=== PATIENT | female | born 1960 | race Caucasian/White ===

== ENCOUNTER 2017-12-06 07:25 | Inpatient (IN) | payer MEDICARE, MEDICAID ==
[~2017-12-06] VITALS: Ht 165.1 cm; Wt 63.7 kg
[~2017-12-06 07:25] MED LIST: ALBU8.5H8 IH; ATOR20TA PO; BUSP10TA11 PO; DOXE10CA3; DULO20CA50 PO; FLUT1DIS INH; HYDR-4353 PO; INSU100V11 SQ; LANTUS SQ; LEVO50TA66 PO; LINA5TAB4 PO; METO-292 PO; MORP30TA PO; SPIIN INH
[2017-12-06] MEDS ORDERED: ipratropium/albuterol 3ml nebule NEB ONE ×3 (07:40→11:35)
[2017-12-06] MEDS ORDERED: methylPREDNISolone sod succ 125mg/2ml vial IV ONE (07:40)
[2017-12-06] MEDS ORDERED: ondansetron/PF 4mg/2ml inj IV ONE (08:25)
[2017-12-06 08:29] LABS: ALANINE AMINOTRANSFERASE 14 U/L (12-78); ALBUMIN 3.8 G/DL (3.4-5.0); ALBUMIN/GLOBULIN RATIO 0.9 (1.1-1.5); ALKALINE PHOSPHATASE 150 IU/L (46-116); ANION GAP 11 (8-16); ASPARTATE AMINO TRANSFERASE 15 U/L (10-37); BILIRUBIN,TOTAL 0.7 MG/DL (0.1-1.0); BLOOD UREA NITROGEN 9 MG/DL (7-18); BUN/CREATININE RATIO 9.3 (6.6-38.0); CALCIUM 9.4 MG/DL (8.5-10.1); CHLORIDE 100 MMOL/L (99-107); CREATININE 0.97 MG/DL (0.40-0.90); GLUCOSE 211 MG/DL (70-104); POTASSIUM 3.8 MMOL/L (3.5-5.1); SODIUM 138 MMOL/L (135-145); TOTAL CARBON DIOXIDE 27.1 MMOL/L (24-32); TOTAL PROTEIN 8.2 G/DL (6.4-8.2); eGFR 59 ML/MIN
[2017-12-06 08:33] LABS: BASOPHILS % (AUTO) 0.1 % (0-1); EOSINOPHILS # (AUTO) 0.1 X10'3 (0-0.9); EOSINOPHILS % (AUTO) 0.7 % (0-6); HEMATOCRIT 45.7 % (35.0-45.0); HEMOGLOBIN 15.7 g/dl (12.0-16.0); LYMPHOCYTES # (AUTO) 2.1 X10'3 (1.1-4.8); MEAN CORPUSCULAR HEMOGLOBIN 31.4 PG (27.0-31.0); MEAN CORPUSCULAR HGB CONC 34.4 % (33.0-36.5); MEAN CORPUSCULAR VOLUME 91.1 FL (78-98); MONOCYTES # (AUTO) 0.5 X10'3 (0-0.9); MONOCYTES % (AUTO) 4.2 % (2-12); NEUTROPHILS # (AUTO) 8.4 X10'3 (1.8-7.7); PLATELET COUNT 256 X10'3 (140-440); RED BLOOD COUNT 5.02 X10'6 (4.20-5.60); RED CELL DISTRIBUTION WIDTH 12.8 % (11.5-14.5); WHITE BLOOD COUNT 11.1 X10'3 (4.5-11.0)
[2017-12-06] MEDS ORDERED: levoFLOXACIN-Levaquin 750MG/D5 150 ML IV ONE (08:40)
[2017-12-06] MEDS ORDERED: LORA1TAB PO (08:47)
[2017-12-06 08:55] LABS: PROTHROMBIN TIME 10.1 SECONDS (9.0-12.0)
[2017-12-06 08:56] LABS: D-DIMER 0.38 MG/L FEU (0-0.50); PARTIAL THROMBOPLASTIN TIME 32 SECONDS (22-32)
[2017-12-06] MEDS ORDERED: magnesium 4gm in 100ml NS 100 ML IV PRN (11:50)
[2017-12-06] MEDS ORDERED: magnesium 1gm/100ml D5W IVPB 100 ML IV PRN (11:50)
[2017-12-06] MEDS ORDERED: potassium Cl 20 mEq SR tablet PO PRN ×2 (11:50)
[2017-12-06] MEDS: K and/or MAG REPLACEMENT MC SCH (11:50)
[2017-12-06] MEDS ORDERED: potassium Cl 40MEQ/NS 500ml 500 ML IV PRN ×2 (11:50)
[2017-12-06] MEDS ORDERED: mag hydrox/Alum hydrox/simeth 30ml oral suspension PO PRN (11:50)
[2017-12-06] MEDS ORDERED: acetaminophen 325mg tablet PO PRN ×2 (11:50)
[2017-12-06] MEDS ORDERED: ipratropium/albuterol 3ml nebule NEB PRN (11:50)
[2017-12-06] MEDS ORDERED: magnesium Cl slow-release 64mg tablet PO PRN (11:50)
[2017-12-06] MEDS ORDERED: glucagon, human recombinant 1mg kit SUBCUT PRN (13:35)
[2017-12-06] MEDS ORDERED: dextrose ORAL solution 15 GM/59 ML bottle PO PRN ×2 (13:35)
[2017-12-06] MEDS ORDERED: dextrose 50%-water 50ml dispensing syringe IV PRN ×2 (13:35)
[2017-12-06] MEDS ORDERED: MESSAGE TO PHARMACY PO ONE (13:35)
[2017-12-06] MEDS ORDERED: DULO60CA64 PO (13:46)
[2017-12-06] MEDS ORDERED: ADV50250 INH (13:48)
[2017-12-06] MEDS ORDERED: MORP30CA17 PO (13:50)
[2017-12-06] MEDS ORDERED: ipratropium 0.5 MG/2.5ML nebule IH SCH (14:00)
[2017-12-06 14:42] LABS: HEMOGLOBIN A1C 8.9 % (4.5-6.2)
[2017-12-06] MEDS ORDERED: albuterol 2.5 MG/3 ML nebule NEB SCH (15:00)
[2017-12-06] MEDS: methylPREDNISolone sod succ 125mg/2ml vial IV SCH ×2 (15:05→19:46)
[2017-12-06] MEDS: enoxaparin 40mg/0.4ml syringe SUBCUT SCH (15:10)
[2017-12-06] MEDS: normal saline 1000ml 1,000 ML IV SCH (15:13)
[2017-12-06] MEDS: nicotine 14mg patch - 24hr TD SCH (15:13)
[2017-12-06 15:34] VITALS: BP 143/59
[2017-12-06] MEDS: LORazepam 1 MG tablet PO SCH (16:17)
[2017-12-06] MEDS: ipratropium/albuterol 3ml nebule NEB SCH ×3 (16:35→22:51)
[2017-12-06 17:00] VITALS: BP 131/62
[2017-12-06] MEDS: BUDESONIDE 0.25 MG/2 ML AMPUL.NEB IH SCH (19:06)
[2017-12-06] MEDS: insulin Lispro (HumaLOG) vial - multi-dose SQ SCH ×2 (19:45→21:44)
[2017-12-06] MEDS: morphine ER 30mg tablet PO SCH (19:46)
[2017-12-06] MEDS: busPIRone 5mg tablet PO SCH (19:46)
[2017-12-06] MEDS ORDERED: insulin glargine (Lantus) pen - multi-dose SQ SCH (21:00)
[2017-12-06] MEDS: LORazepam 2 mg/ml vial IV PRN (21:26)
[2017-12-06] MEDS: insulin glargine (Lantus) pen - multi-dose SQ SCH (21:43)
[2017-12-06 22:00] VITALS: BP 113/84
[2017-12-06] MEDS: temazepam 15mg capsule PO PRN (22:33)
[2017-12-07] MEDS: LORazepam 1 MG tablet PO SCH ×3 (00:03→15:50)
[2017-12-07 00:45] LABS: URINE AMPHETAMINE SCREEN NEGATIVE (Neg); URINE BARBITUATE SCREEN NEGATIVE (Neg); URINE BENZODIAZEPINES SCREEN NEGATIVE (Neg); URINE CANNABINOID SCREEN POSITIVE (Neg); URINE COCAINE SCREEN NEGATIVE (Neg); URINE METHADONE SCREEN NEGATIVE (Neg); URINE OPIATE SCREEN POSITIVE (Neg); URINE PHENCYCLIDINE SCREEN NEGATIVE (Neg)
[2017-12-07] MEDS: normal saline 1000ml 1,000 ML IV SCH ×2 (02:06→05:40)
[2017-12-07] MEDS: methylPREDNISolone sod succ 125mg/2ml vial IV SCH ×4 (02:16→20:27)
[2017-12-07 06:00] VITALS: BP 148/75
[2017-12-07 06:15] LABS: HEMATOCRIT 39.9 % (35.0-45.0); HEMOGLOBIN 13.2 g/dl (12.0-16.0); MEAN CORPUSCULAR HGB CONC 33.1 % (33.0-36.5); MEAN CORPUSCULAR VOLUME 90.5 FL (78-98); MEAN PLATELET VOLUME 7.9 FL (7.4-10.4); PLATELET COUNT 217 X10'3 (140-440); RED BLOOD COUNT 4.41 X10'6 (4.20-5.60); RED CELL DISTRIBUTION WIDTH 12.8 % (11.5-14.5); WHITE BLOOD COUNT 11.2 X10'3 (4.5-11.0)
[2017-12-07 06:26] LABS: ALBUMIN 3.3 G/DL (3.4-5.0); ANION GAP 7 (8-16); BLOOD UREA NITROGEN 9 MG/DL (7-18); BUN/CREATININE RATIO 11.1 (6.6-38.0); CALCIUM 9.1 MG/DL (8.5-10.1); CHLORIDE 101 MMOL/L (99-107); CHOL/HDL RATIO 2.4 (0.00-4.99); CHOLESTEROL 120 MG/DL (0-200); CREATININE 0.81 MG/DL (0.40-0.90); GLUCOSE 252 MG/DL (70-104); HDL CHOLESTEROL 49 MG/DL (35-60); LDL CHOLESTEROL 56 MG/DL (50-100); MAGNESIUM 1.7 MG/DL (1.5-2.4); SODIUM 137 MMOL/L (135-145); TOTAL CARBON DIOXIDE 28.9 MMOL/L (24-32); TRIGLYCERIDES 83 MG/DL (20-135); eGFR 72 ML/MIN
[2017-12-07 07:03] LABS: POTASSIUM 4.3 MMOL/L (3.5-5.1)
[2017-12-07] MEDS: LORazepam 2 mg/ml vial IV PRN (07:06)
[2017-12-07] MEDS: ipratropium/albuterol 3ml nebule NEB SCH ×2 (07:33→11:52)
[2017-12-07] MEDS: BUDESONIDE 0.25 MG/2 ML AMPUL.NEB IH SCH ×2 (07:33→19:38)
[2017-12-07] MEDS: K and/or MAG REPLACEMENT MC SCH (08:00)
[2017-12-07] MEDS: linagliptin 5mg tablet PO SCH (08:15)
[2017-12-07] MEDS: morphine ER 30mg tablet PO SCH ×2 (08:15→20:33)
[2017-12-07] MEDS: enoxaparin 40mg/0.4ml syringe SUBCUT SCH (08:16)
[2017-12-07] MEDS: atorvastatin 20mg tablet PO SCH (08:16)
[2017-12-07] MEDS: busPIRone 5mg tablet PO SCH ×2 (08:16→20:32)
[2017-12-07] MEDS: nicotine 14mg patch - 24hr TD SCH (08:16)
[2017-12-07] MEDS: levoTHYROXINE 25mcg tablet PO SCH (08:17)
[2017-12-07] MEDS: levoFLOXACIN-Levaquin 500mg/D5 100 ML IV SCH ×2 (09:26→14:41)
[2017-12-07] MEDS: HYDROcodone/acetaminophen 10/325mg tab PO PRN ×3 (09:27→22:21)
[2017-12-07] MEDS: insulin Lispro (HumaLOG) vial - multi-dose SQ SCH ×3 (09:40→20:20)
[2017-12-07 10:00] VITALS: BP 118/57
[2017-12-07] MEDS ORDERED: METO25TA6 PO (11:23)
[2017-12-07] MEDS ORDERED: LISI10TA4 PO (11:24)
[2017-12-07] MEDS ORDERED: HYDR-4353 PO (11:35)
[2017-12-07] MEDS ORDERED: levalbuterol 0.63mg/3ml nebule IH PRN (15:50)
[2017-12-07] MEDS ORDERED: Protein Smoothie (high protein) 240ml (8oz) cup PO SCH (17:00)
[2017-12-07 18:00] VITALS: BP 112/55
[2017-12-07] MEDS: ondansetron/PF 4mg/2ml inj IV PRN (19:11)
[2017-12-07] MEDS: levalbuterol 0.63mg/3ml nebule IH SCH ×2 (19:39→23:00)
[2017-12-07] MEDS: ipratropium 0.5 MG/2.5ML nebule IH SCH ×2 (19:39→23:00)
[2017-12-07] MEDS: metoprolol tartrate 25mg tablet PO SCH (20:32)
[2017-12-07] MEDS: doxycycline inj 100 MG in normal saline 100ml IV soln 100 ML IV SCH (20:33)
[2017-12-07] MEDS: lactobacillus rhamnosus 10,000 MMU CELLS/CAPSULE PO SCH (20:33)
[2017-12-07] MEDS: temazepam 15mg capsule PO PRN (20:36)
[2017-12-07] MEDS ORDERED: levalbuterol 0.63mg/3ml nebule IH SCH (21:00)
[2017-12-07 22:00] VITALS: BP 103/55
[2017-12-07] MEDS: insulin glargine (Lantus) pen - multi-dose SQ SCH (22:34)
[2017-12-08] MEDS: LORazepam 1 MG tablet PO SCH ×4 (00:10→23:43)
[2017-12-08] MEDS: methylPREDNISolone sod succ 125mg/2ml vial IV SCH ×4 (02:33→20:10)
[2017-12-08 06:00] VITALS: BP 135/76
[2017-12-08 06:58] LABS: HEMATOCRIT 35.9 % (35.0-45.0); HEMOGLOBIN 12.5 g/dl (12.0-16.0); MEAN CORPUSCULAR HEMOGLOBIN 31.5 PG (27.0-31.0); MEAN CORPUSCULAR HGB CONC 34.8 % (33.0-36.5); MEAN CORPUSCULAR VOLUME 90.5 FL (78-98); PLATELET COUNT 207 X10'3 (140-440); RED BLOOD COUNT 3.96 X10'6 (4.20-5.60); RED CELL DISTRIBUTION WIDTH 13.2 % (11.5-14.5); WHITE BLOOD COUNT 15.8 X10'3 (4.5-11.0)
[2017-12-08 07:06] LABS: ANION GAP 7 (8-16); BLOOD UREA NITROGEN 14 MG/DL (7-18); BUN/CREATININE RATIO 16.5 (6.6-38.0); CALCIUM 8.4 MG/DL (8.5-10.1); CHLORIDE 105 MMOL/L (99-107); CREATININE 0.85 MG/DL (0.40-0.90); GLUCOSE 128 MG/DL (70-104); MAGNESIUM 1.6 MG/DL (1.5-2.4); POTASSIUM 4.2 MMOL/L (3.5-5.1); SODIUM 140 MMOL/L (135-145); eGFR 68 ML/MIN
[2017-12-08] MEDS: levalbuterol 0.63mg/3ml nebule IH SCH ×5 (07:25→22:55)
[2017-12-08] MEDS: ipratropium 0.5 MG/2.5ML nebule IH SCH ×5 (07:25→22:55)
[2017-12-08] MEDS: BUDESONIDE 0.25 MG/2 ML AMPUL.NEB IH SCH ×2 (07:28→19:50)
[2017-12-08] MEDS: K and/or MAG REPLACEMENT MC SCH (08:00)
[2017-12-08] MEDS: doxycycline inj 100 MG in normal saline 100ml IV soln 100 ML IV SCH ×2 (08:01→20:08)
[2017-12-08] MEDS: atorvastatin 20mg tablet PO SCH (08:02)
[2017-12-08] MEDS: lactobacillus rhamnosus 10,000 MMU CELLS/CAPSULE PO SCH ×2 (08:02→20:07)
[2017-12-08] MEDS: morphine ER 30mg tablet PO SCH ×2 (08:02→20:07)
[2017-12-08] MEDS: nicotine 14mg patch - 24hr TD SCH (08:02)
[2017-12-08] MEDS: levoTHYROXINE 25mcg tablet PO SCH (08:02)
[2017-12-08] MEDS: metoprolol tartrate 25mg tablet PO SCH ×2 (08:03→20:07)
[2017-12-08] MEDS: enoxaparin 40mg/0.4ml syringe SUBCUT SCH (08:03)
[2017-12-08] MEDS: busPIRone 5mg tablet PO SCH ×2 (08:03→20:07)
[2017-12-08] MEDS: linagliptin 5mg tablet PO SCH (08:03)
[2017-12-08] MEDS: ondansetron/PF 4mg/2ml inj IV PRN (08:05)
[2017-12-08] MEDS: normal saline 1000ml 1,000 ML IV SCH (08:21)
[2017-12-08] MEDS: HYDROcodone/acetaminophen 10/325mg tab PO PRN ×4 (09:31→22:02)
[2017-12-08 10:00] VITALS: BP 99/57
[2017-12-08] MEDS: insulin Lispro (HumaLOG) vial - multi-dose SQ SCH ×3 (10:14→18:44)
[2017-12-08] MEDS ORDERED: proCHLORperazine 10 MG/2 ml inj IV PRN (12:15)
[2017-12-08 17:00] VITALS: BP 120/47
[2017-12-08 20:06] VITALS: BP 124/62
[2017-12-08] MEDS: insulin glargine (Lantus) pen - multi-dose SQ SCH (21:12)
[2017-12-08] MEDS: temazepam 15mg capsule PO PRN (21:12)
[2017-12-08 22:00] VITALS: BP 132/54
[2017-12-09] MEDS: methylPREDNISolone sod succ 125mg/2ml vial IV SCH ×2 (02:08→07:22)
[2017-12-09] MEDS: normal saline 1000ml 1,000 ML IV SCH (02:09)
[2017-12-09] MEDS: ondansetron/PF 4mg/2ml inj IV PRN (03:36)
[2017-12-09] MEDS: magnesium hydroxide 30ml (MOM) UD suspension PO PRN ×2 (04:03→15:43)
[2017-12-09] MEDS: HYDROcodone/acetaminophen 10/325mg tab PO PRN ×5 (04:03→23:58)
[2017-12-09 05:23] LABS: HEMATOCRIT 39.2 % (35.0-45.0); HEMOGLOBIN 12.8 g/dl (12.0-16.0); MEAN CORPUSCULAR HEMOGLOBIN 29.9 PG (27.0-31.0); MEAN CORPUSCULAR HGB CONC 32.6 % (33.0-36.5); MEAN CORPUSCULAR VOLUME 91.8 FL (78-98); MEAN PLATELET VOLUME 7.7 FL (7.4-10.4); PLATELET COUNT 238 X10'3 (140-440); RED BLOOD COUNT 4.27 X10'6 (4.20-5.60); RED CELL DISTRIBUTION WIDTH 14.5 % (11.5-14.5); WHITE BLOOD COUNT 16.3 X10'3 (4.5-11.0)
[2017-12-09 06:00] VITALS: BP 109/64
[2017-12-09 06:42] LABS: ALBUMIN 3.1 G/DL (3.4-5.0); ANION GAP 8 (8-16); BLOOD UREA NITROGEN 16 MG/DL (7-18); CALCIUM 8.6 MG/DL (8.5-10.1); CHLORIDE 105 MMOL/L (99-107); GLUCOSE 70 MG/DL (70-104); MAGNESIUM 1.8 MG/DL (1.5-2.4); POTASSIUM 3.5 MMOL/L (3.5-5.1); SODIUM 141 MMOL/L (135-145); TOTAL CARBON DIOXIDE 28.4 MMOL/L (24-32); eGFR 57 ML/MIN
[2017-12-09] MEDS: BUDESONIDE 0.25 MG/2 ML AMPUL.NEB IH SCH ×2 (07:01→19:34)
[2017-12-09] MEDS: ipratropium 0.5 MG/2.5ML nebule IH SCH ×5 (07:02→23:43)
[2017-12-09] MEDS: levalbuterol 0.63mg/3ml nebule IH SCH ×5 (07:14→23:43)
[2017-12-09] MEDS: levoTHYROXINE 25mcg tablet PO SCH (07:22)
[2017-12-09] MEDS: lactobacillus rhamnosus 10,000 MMU CELLS/CAPSULE PO SCH ×2 (07:23→20:16)
[2017-12-09] MEDS: doxycycline inj 100 MG in normal saline 100ml IV soln 100 ML IV SCH (07:23)
[2017-12-09] MEDS: LORazepam 1 MG tablet PO SCH ×3 (07:23→23:58)
[2017-12-09] MEDS: busPIRone 5mg tablet PO SCH ×2 (07:23→20:15)
[2017-12-09] MEDS: atorvastatin 20mg tablet PO SCH (07:24)
[2017-12-09] MEDS: morphine ER 30mg tablet PO SCH ×2 (07:26→20:15)
[2017-12-09] MEDS: linagliptin 5mg tablet PO SCH (07:26)
[2017-12-09] MEDS: metoprolol tartrate 25mg tablet PO SCH ×2 (07:26→20:15)
[2017-12-09] MEDS: enoxaparin 40mg/0.4ml syringe SUBCUT SCH (07:27)
[2017-12-09] MEDS: nicotine 14mg patch - 24hr TD SCH (07:28)
[2017-12-09] MEDS: K and/or MAG REPLACEMENT MC SCH (08:00)
[2017-12-09 10:00] VITALS: BP 109/64
[2017-12-09] MEDS ORDERED: polyethylene glycol 3350 17gm powd pack PO PRN (16:25)
[2017-12-09] MEDS: DOXYCYCLINE 100MG CAPSULE PO SCH (16:53)
[2017-12-09 18:00] VITALS: BP 141/65
[2017-12-09] MEDS: insulin Lispro (HumaLOG) vial - multi-dose SQ SCH (18:49)
[2017-12-09] MEDS ORDERED: methylPREDNISolone sod succ 125mg/2ml vial IV SCH (20:00)
[2017-12-09] MEDS: docusate sod 100mg capsule PO SCH (20:15)
[2017-12-09 22:00] VITALS: BP 148/46
[2017-12-10 05:00] VITALS: BP 147/55
[2017-12-10 05:25] LABS: HEMATOCRIT 37.9 % (35.0-45.0); HEMOGLOBIN 12.6 g/dl (12.0-16.0); MEAN CORPUSCULAR HEMOGLOBIN 30.2 PG (27.0-31.0); MEAN CORPUSCULAR HGB CONC 33.4 % (33.0-36.5); MEAN CORPUSCULAR VOLUME 90.4 FL (78-98); MEAN PLATELET VOLUME 7.4 FL (7.4-10.4); PLATELET COUNT 236 X10'3 (140-440); RED BLOOD COUNT 4.19 X10'6 (4.20-5.60); RED CELL DISTRIBUTION WIDTH 13.9 % (11.5-14.5); WHITE BLOOD COUNT 10.9 X10'3 (4.5-11.0)
[2017-12-10 05:47] LABS: ALBUMIN 2.6 G/DL (3.4-5.0); ANION GAP 4 (8-16); BLOOD UREA NITROGEN 14 MG/DL (7-18); BUN/CREATININE RATIO 16.7 (6.6-38.0); CHLORIDE 107 MMOL/L (99-107); CREATININE 0.84 MG/DL (0.40-0.90); GLUCOSE 111 MG/DL (70-104); POTASSIUM 4.5 MMOL/L (3.5-5.1); SODIUM 141 MMOL/L (135-145); TOTAL CARBON DIOXIDE 29.8 MMOL/L (24-32); eGFR 69 ML/MIN
[2017-12-10] MEDS: levalbuterol 0.63mg/3ml nebule IH SCH ×2 (07:00→11:21)
[2017-12-10] MEDS ORDERED: levoTHYROXINE 25mcg tablet PO SCH (07:00)
[2017-12-10] MEDS ORDERED: lactulose 20gm/30ml cup PO ONE (07:40)
[2017-12-10] MEDS: ondansetron/PF 4mg/2ml inj IV PRN (07:48)
[2017-12-10] MEDS: nicotine 14mg patch - 24hr TD SCH (07:56)
[2017-12-10] MEDS: DOXYCYCLINE 100MG CAPSULE PO SCH (07:58)
[2017-12-10] MEDS: LORazepam 1 MG tablet PO SCH (07:59)
[2017-12-10] MEDS: busPIRone 5mg tablet PO SCH (07:59)
[2017-12-10] MEDS: K and/or MAG REPLACEMENT MC SCH (08:00)
[2017-12-10] MEDS ORDERED: predniSONE 20 mg tablet PO SCH (08:00)
[2017-12-10] MEDS ORDERED: famotidine 20mg tablet PO SCH (08:00)
[2017-12-10] MEDS: docusate sod 100mg capsule PO SCH (08:00)
[2017-12-10] MEDS: lactobacillus rhamnosus 10,000 MMU CELLS/CAPSULE PO SCH (08:01)
[2017-12-10] MEDS: atorvastatin 20mg tablet PO SCH (08:01)
[2017-12-10] MEDS: metoprolol tartrate 25mg tablet PO SCH (08:02)
[2017-12-10] MEDS: morphine ER 30mg tablet PO SCH (08:02)
[2017-12-10] MEDS: linagliptin 5mg tablet PO SCH (08:04)
[2017-12-10] MEDS: enoxaparin 40mg/0.4ml syringe SUBCUT SCH (08:08)
[2017-12-10] MEDS: ipratropium 0.5 MG/2.5ML nebule IH SCH ×2 (08:41→11:21)
[2017-12-10] MEDS ORDERED: DOXY-224 PO (09:22)
[2017-12-10] MEDS ORDERED: LEVA15HF4 INH (09:22)
[2017-12-10] MEDS ORDERED: PRED20TA PO (09:22)
[2017-12-10] MEDS ORDERED: NICO-631 TD (09:22)
[2017-12-10] MEDS ORDERED: LEVO25TA7 PO (09:22)
[2017-12-10] MEDS ORDERED: FAMO20TA8 PO (09:34)
[2017-12-10 10:00] VITALS: BP 168/81
[2017-12-10 10:59] VITALS: BP 146/64
[2017-12-10] MEDS: HYDROcodone/acetaminophen 10/325mg tab PO PRN (11:18)
== END 2017-12-10 12:05 | disposition home or self-care (01) | DRG 189 ==
LOC: ER 07:26 → ED HOLD 11:48 → ORTHO 4S 14:30
PROVIDERS: ADMIT Family Medicine; ATTEND Family Medicine
DX: J96.21 Acute and chronic respiratory failure with hypoxia (principal); J44.1 Chronic obstructive pulmonary disease with (acute) exacerbation; E03.9 Hypothyroidism, unspecified; E11.51 Type 2 diabetes mellitus with diabetic peripheral angiopathy without gangrene; F41.1 Generalized anxiety disorder; R00.0 Tachycardia, unspecified; I10 Essential (primary) hypertension; F17.210 Nicotine dependence, cigarettes, uncomplicated; E78.5 Hyperlipidemia, unspecified; G89.29 Other chronic pain; I25.10 Atherosclerotic heart disease of native coronary artery without angina pectoris; I25.2 Old myocardial infarction; Z90.49 Acquired absence of other specified parts of digestive tract; Z90.710 Acquired absence of both cervix and uterus; Z95.5 Presence of coronary angioplasty implant and graft; Z99.81 Dependence on supplemental oxygen; Z88.5 Allergy status to narcotic agent; Z88.8 Allergy status to other drugs, medicaments and biological substances; Z79.4 Long term (current) use of insulin; Z79.899 Other long term (current) drug therapy; Z86.711 Personal history of pulmonary embolism; Z71.6 Tobacco abuse counseling
CPT/HCPCS: 36415; 71046; 80048; 80053; 80061; 80305; 82948; 83036; 83605; 83735; 84443; 84484; 85025; 85027; 85379; 85610; 85730; 87040; 87070; 93005; 94640; 94760; 96365; 96375; 99285; J0780; J1650; J1815; J1956; J2060; J2405; J2930; J3490; J7030; J7512; J7614

== ENCOUNTER 2020-03-21 21:20 | Emergency (ER) | payer MEDICARE, MEDICAID ==
[~2020-03-21] VITALS: Ht 160 cm; Wt 69.1 kg
[~2020-03-21 21:20] MED LIST changes: -ALBU8.5H8 IH; -ATOR20TA PO; +ATOR40TA72 PO; +BUS15T PO; -BUSP10TA11 PO; +CLOP75TA34 PO; -DOXE10CA3; +DOXE50CA4 PO; -DULO20CA50 PO; +DULO60CA65 PO; -FLUT1DIS INH; -HYDR-4353 PO; -INSU100V11 SQ; -LANTUS SQ; +LEVA15HF4 INH; -LEVO50TA66 PO; +LEVO50TA8 PO; -LINA5TAB4 PO; +LISI-600 PO; -METO-292 PO; +METO-384 PO; +MONT10TA97 PO; -MORP30TA PO; +ONDA8TAB13 PO; +PANT40TA54 PO; -SPIIN INH; +UMEC62.5 IH
[2020-03-21] MEDS ORDERED: normal saline 1000ML IV soln IVB ONE (21:55)
[2020-03-21 22:08] LABS: ALANINE AMINOTRANSFERASE 171 U/L (12-78); ALBUMIN 3.3 G/DL (3.4-5.0); ALBUMIN/GLOBULIN RATIO 0.8 (1.1-1.5); ALKALINE PHOSPHATASE 665 IU/L (46-116); ANION GAP 10 (8-16); ASPARTATE AMINO TRANSFERASE 285 U/L (10-37); BILIRUBIN,TOTAL 0.6 MG/DL (0.1-1.0); BLOOD UREA NITROGEN 9 MG/DL (7-18); BUN/CREATININE RATIO 8.7 (6.6-38.0); CALCIUM 8.8 MG/DL (8.5-10.1); CHLORIDE 102 MMOL/L (99-107); CREATININE 1.04 MG/DL (0.40-0.90); GLUCOSE 214 MG/DL (70-104); POTASSIUM 3.5 MMOL/L (3.5-5.1); SODIUM 139 MMOL/L (135-145); TOTAL PROTEIN 7.5 G/DL (6.4-8.2); eGFR 56 ML/MIN
[2020-03-21 22:12] LABS: BASOPHILS % (AUTO) 0.4 % (0-1); EOSINOPHILS # (AUTO) 0.3 X10'3 (0-0.9); EOSINOPHILS % (AUTO) 3.6 % (0-6); HEMATOCRIT 31.8 % (35.0-45.0); LYMPHOCYTES # (AUTO) 2.2 X10'3 (1.1-4.8); LYMPHOCYTES % (AUTO) 24.8 % (21-51); MEAN CORPUSCULAR HEMOGLOBIN 23.5 PG (27.0-31.0); MEAN CORPUSCULAR HGB CONC 31.6 g/dL (33.0-36.5); MEAN CORPUSCULAR VOLUME 74.5 FL (78-98); MEAN PLATELET VOLUME 7.1 FL (7.4-10.4); MONOCYTES # (AUTO) 0.7 X10'3 (0-0.9); MONOCYTES % (AUTO) 8.1 % (2-12); NEUTROPHILS # (AUTO) 5.7 X10'3 (1.8-7.7); NEUTROPHILS % (AUTO) 63.1 % (42-75); PLATELET COUNT 402 X10'3 (140-440); RED BLOOD COUNT 4.27 X10'6 (4.20-5.60); RED CELL DISTRIBUTION WIDTH 17.4 % (11.5-14.5); WHITE BLOOD COUNT 9.1 X10'3 (4.5-11.0)
[2020-03-21 22:19] LABS: LIPASE 443 U/L (73-393); MAGNESIUM 1.6 MG/DL (1.5-2.4); PARTIAL THROMBOPLASTIN TIME 22 SECONDS (22-32)
[2020-03-21] MEDS ORDERED: ondansetron/PF 4mg/2ml inj IV ONE (22:55)
[2020-03-21] MEDS ORDERED: morphine 4 MG/ML inj SYRINge IV ONE (23:50)
[2020-03-21] MEDS ORDERED: iohexol 300mg/ml 100ml inj. ONE (23:52)
[2020-03-22] MEDS ORDERED: proCHLORperazine 10 MG/2 ml inj IV PRN (00:25)
[2020-03-22 01:06] LABS: COLOR,URINE YELLOW (Yellow); GLUCOSE, URINE NEGATIVE (Neg); KETONES,URINE NEGATIVE (Neg); LEUKOCYTE ESTERASE ,URINE TRACE (Neg); NITRITES, URINE NEGATIVE (Neg); OCCULT BLOOD,URINE NEGATIVE (Neg); PH,URINE 6.5 (4.8-8.0); PROTEIN,URINE NEGATIVE (Neg); UROBILINOGEN,URINE 0.2 E.U/dL (0.2-1.0)
[2020-03-22 01:09] LABS: CLARITY,URINE SLIGHTLY CLOUDY (Clear); UA COLLECTION TYPE CLN CATCH MIDSTREAM
[2020-03-22 01:16] LABS: BACTERIA,URINE 1+ /HPF (Neg); RBC,URINE NONE SEEN /HPF (0-2)
[2020-03-22 01:17] LABS: HYALINE CASTS 0-3 /LPF (NEGATIVE); MUCUS STRANDS FEW /LPF (Neg); SQUAMOUS EPITHELIAL CELL,UR MANY /LPF (FEW); YEAST FEW /HPF (NEGATIVE)
[2020-03-22 01:55] VITALS: BP 116/50
== END 2020-03-22 01:58 | disposition home or self-care (01) ==
LOC: ER 21:22 → EDBD 21:22 → ER 03-22 01:58
DX: K85.90 Acute pancreatitis without necrosis or infection, unspecified (principal); R10.9 Unspecified abdominal pain; R07.89 Other chest pain; I25.10 Atherosclerotic heart disease of native coronary artery without angina pectoris; F17.200 Nicotine dependence, unspecified, uncomplicated; J44.9 Chronic obstructive pulmonary disease, unspecified; E11.9 Type 2 diabetes mellitus without complications; I50.9 Heart failure, unspecified; F12.90 Cannabis use, unspecified, uncomplicated; Z95.4 Presence of other heart-valve replacement; Z88.6 Allergy status to analgesic agent; Z88.8 Allergy status to other drugs, medicaments and biological substances; Z86.79 Personal history of other diseases of the circulatory system; Z86.711 Personal history of pulmonary embolism; Z98.61 Coronary angioplasty status; Z90.49 Acquired absence of other specified parts of digestive tract; Z56.0 Unemployment, unspecified
CPT/HCPCS: 36415; 71045; 74177; 76700; 80053; 81001; 82948; 83605; 83690; 83735; 83880; 84484; 85025; 85610; 85730; 87040; 93005; 96361; 96374; 96375; 99285; J0780; J2270; J2405; J7030; Q9967

== ENCOUNTER 2020-10-23 17:05 | Emergency (ER) | payer MEDICARE, MEDICAID ==
[~2020-10-23] VITALS: Ht 165.1 cm; Wt 70.5 kg
[~2020-10-23 17:05] MED LIST changes: -LISI-600 PO; +LISI20TA28 PO; +MONT10TA32 PO; -MONT10TA97 PO
[2020-10-23] MEDS ORDERED: pantoprazole 40 MG vial IV ONE (19:10)
[2020-10-23] MEDS ORDERED: ondansetron/PF 4mg/2ml inj IV ONE (19:10)
[2020-10-23] MEDS ORDERED: ALBUTEROL INHALER 1 PUFF/90 MCG INHALER IH PRN (19:10)
[2020-10-23] MEDS ORDERED: benzonatate 100mg capsule PO ONE (19:10)
[2020-10-23] MEDS ORDERED: albuterol 2.5 MG/3 ML nebule NEB PRN (19:15)
[2020-10-23] MEDS ORDERED: dexamethasone 4mg/ml inj IV SCH (19:15)
[2020-10-23 19:49] LABS: BASOPHILS % (AUTO) 0.1 % (0-1); EOSINOPHILS % (AUTO) 0 % (0-6); HEMATOCRIT 31.1 % (35.0-45.0); HEMOGLOBIN 10.1 g/dl (12.0-16.0); LYMPHOCYTES # (AUTO) 0.5 X10'3 (1.1-4.8); LYMPHOCYTES % (AUTO) 4.3 % (21-51); MEAN CORPUSCULAR HEMOGLOBIN 23.3 PG (27.0-31.0); MEAN CORPUSCULAR HGB CONC 32.4 g/dL (33.0-36.5); MEAN CORPUSCULAR VOLUME 71.8 FL (78-98); MEAN PLATELET VOLUME 8.1 FL (7.4-10.4); MONOCYTES # (AUTO) 0.6 X10'3 (0-0.9); MONOCYTES % (AUTO) 5.7 % (2-12); NEUTROPHILS # (AUTO) 10.2 X10'3 (1.8-7.7); NEUTROPHILS % (AUTO) 89.9 % (42-75); PLATELET COUNT 262 X10'3 (140-440); RED BLOOD COUNT 4.33 X10'6 (4.20-5.60); WHITE BLOOD COUNT 11.3 X10'3 (4.5-11.0)
[2020-10-23 20:09] LABS: ALANINE AMINOTRANSFERASE 19 U/L (12-78); ALBUMIN 3.2 G/DL (3.4-5.0); ALBUMIN/GLOBULIN RATIO 0.8 (1.1-1.5); ALKALINE PHOSPHATASE 95 IU/L (46-116); ANION GAP 12 (8-16); ASPARTATE AMINO TRANSFERASE 21 U/L (10-37); BILIRUBIN,TOTAL 0.3 MG/DL (0.1-1.0); BLOOD UREA NITROGEN 28 MG/DL (7-18); BUN/CREATININE RATIO 23.9 (6.6-38.0); CALCIUM 8.6 MG/DL (8.5-10.1); CHLORIDE 104 MMOL/L (99-107); CREATININE 1.17 MG/DL (0.40-0.90); GLUCOSE 271 MG/DL (70-104); POTASSIUM 4.9 MMOL/L (3.5-5.1); SODIUM 137 MMOL/L (135-145); TOTAL CARBON DIOXIDE 20.9 MMOL/L (24-32); TOTAL PROTEIN 7.3 G/DL (6.4-8.2); eGFR 47 ML/MIN
[2020-10-23 21:59] LABS: CLARITY,URINE CLEAR (Clear); COLOR,URINE YELLOW (Yellow); GLUCOSE, URINE NEGATIVE (Neg); KETONES,URINE NEGATIVE (Neg); LEUKOCYTE ESTERASE ,URINE NEGATIVE (Neg); NITRITES, URINE NEGATIVE (Neg); OCCULT BLOOD,URINE NEGATIVE (Neg); PROTEIN,URINE NEGATIVE (Neg); UROBILINOGEN,URINE 0.2 E.U/dL (0.2-1.0)
[2020-10-23 22:03] LABS: UA COLLECTION TYPE CLN CATCH MIDSTREAM
[2020-10-23 22:07] LABS: ANISOCYTOSIS 3+; MICROCYTOSIS 1+; PLATELET ESTIMATE NORMAL
[2020-10-23 22:08] LABS: ACANTHOCYTES FEW; ELLIPTOCYTES 1+
[2020-10-23 22:23] LABS: ABG BASE EXCESS -2.9 mmol/L (-2.0-2.0); ABG HCO3 19.5 mmol/L (22.0-26.0); ABG OXYGEN SATURATION 90.3 % (94-97); ABG PCO2 (T) 26.1 mmHg (32.0-45.0); ABG PO2 (T) 55.8 mmHg (75.0-100.0); ALLEN'S TEST POSITIVE; FCOHb 0.6 % (0.0-3.9); FMetHb 0.3 % (0.0-1.5); FO2Hb 89.5 % (94-97); PATIENT TEMPERATURE 36.4; TOTAL HEMOGLOBIN 10.6 G/dl (12.0-16.0)
[2020-10-23 22:29] LABS: D-DIMER 1.36 MG/L FEU (0-0.50)
[2020-10-23] MEDS ORDERED: acetaminophen 325mg tablet PO ONE (22:35)
[2020-10-23 22:47] LABS: URINE AMPHETAMINE SCREEN NEGATIVE (Neg); URINE BARBITUATE SCREEN NEGATIVE (Neg); URINE BENZODIAZEPINES SCREEN NEGATIVE (Neg); URINE CANNABINOID SCREEN POSITIVE (Neg); URINE COCAINE SCREEN NEGATIVE (Neg); URINE METHADONE SCREEN NEGATIVE (Neg); URINE OPIATE SCREEN POSITIVE (Neg); URINE PHENCYCLIDINE SCREEN NEGATIVE (Neg)
[2020-10-23 22:52] LABS: ETHANOL < 0.010 GM/DL (0.0-0.010)
[2020-10-23] MEDS ORDERED: LINA5TAB4 PO (23:20)
[2020-10-23] MEDS ORDERED: INSU100I31 SQ (23:21)
[2020-10-23] MEDS ORDERED: DULO60CA45 PO (23:22)
[2020-10-23] MEDS ORDERED: CARSR60C PO (23:23)
[2020-10-23] MEDS ORDERED: LORA-269 PO (23:24)
[2020-10-23] MEDS ORDERED: ATOR40TA7 PO (23:24)
[2020-10-23] MEDS ORDERED: ZOLP5TAB8 PO (23:26)
[2020-10-23] MEDS ORDERED: INSULIN (23:26)
[2020-10-23] MEDS ORDERED: iohexol 350MG/ML 100ml bottle IV ONE (23:33)
--- NOTE | 2020-10-24 00:01 | NUR ---
JOSE SON [phone]
[2020-10-24] MEDS ORDERED: mag hydrox/Alum hydrox/simeth 30ml oral suspension PO PRN (01:15)
[2020-10-24] MEDS ORDERED: acetaminophen 325mg tablet PO PRN ×2 (01:15)
[2020-10-24] MEDS ORDERED: magnesium 2GM in 50ml NS 50 ML IV PRN (01:15)
[2020-10-24] MEDS ORDERED: ondansetron/PF 4mg/2ml inj IV PRN (01:15)
[2020-10-24] MEDS ORDERED: magnesium Cl slow-release 64mg tablet PO PRN (01:15)
[2020-10-24] MEDS ORDERED: potassium Cl 20 mEq SR tablet PO PRN ×2 (01:15)
[2020-10-24] MEDS ORDERED: potassium Cl 40MEQ/1/2NS 520ml 520 ML IV PRN ×2 (01:15)
[2020-10-24] MEDS ORDERED: normal saline 1000ml 1,000 ML IV SCH (01:15)
[2020-10-24] MEDS ORDERED: magnesium 4gm in 100ml NS 100 ML IV PRN (01:15)
[2020-10-24] MEDS ORDERED: REMDESIVIR 200 MG in NS 100ml IVPB Loading dose IV ONE (01:55)
[2020-10-24 02:23] LABS: ABG BASE EXCESS -2.4 mmol/L (-2.0-2.0); ABG PCO2 (T) 31.1 mmHg (32.0-45.0); ABG PO2 (T) 66.3 mmHg (75.0-100.0); ALLEN'S TEST POSITIVE; FCOHb 0.5 % (0.0-3.9); FMetHb 0.3 % (0.0-1.5); FO2Hb 91.3 % (94-97); TOTAL HEMOGLOBIN 9.6 G/dl (12.0-16.0)
[2020-10-24] MEDS ORDERED: NITR0.4T51 SL (07:11)
[2020-10-24] MEDS ORDERED: DILT180C89 PO (07:11)
[2020-10-24] MEDS ORDERED: HYDR-3972 PO (07:11)
[2020-10-24] MEDS ORDERED: ASCO500T20 PO (07:11)
[2020-10-24] MEDS ORDERED: INSU100V13 SQ (07:11)
--- NOTE | 2020-10-24 07:34 | NUR ---
iv out. pt states, "iv fell out:"
--- NOTE | 2020-10-24 07:45 | NUR ---
pt wants to go home. explained ama to her. she still wants to go home. informed dr. mancini of situation. Ok for her to go home, wont be able to come see her for a couple of hours. pt doesnt want to wait.
--- NOTE | 2020-10-24 07:59 | NUR ---
pt refusing medication. decadron and remsdivar
[2020-10-24] MEDS ORDERED: heparin, porcine 5000 units/ml vial SQ SCH (08:00)
[2020-10-24] MEDS ORDERED: dexamethasone 4mg/ml inj IV SCH (08:00)
[2020-10-24] MEDS ORDERED: K and/or MAG REPLACEMENT MC SCH (08:00)
[2020-10-24] MEDS ORDERED: REMDESIVIR INJ 100 MG in normal saline 100ml IV soln 80 ML IV SCH (08:00)
--- NOTE | 2020-10-24 08:00 | NUR ---
pt states, "I wanna go home Ill feel better at home".
--- NOTE | 2020-10-24 08:03 | NUR ---
pt called son Natanael and will come get pt.
[2020-10-24 08:04] VITALS: BP 152/76
[2020-10-24] MEDS ORDERED: PANT-47 PO (17:42)
== END 2020-10-24 11:06 | disposition left against medical advice (07) ==
LOC: ER 17:06 → ED HOLD 10-24 01:20 → UNDOADMOB 10-24 01:20 → UNDODISOB 10-24 09:00 → ED HOLD 10-26 12:13 → SUR 3N 10-26 12:18 → ED HOLD 10-26 12:18
DX: U07.1 COVID-19 (principal); I25.10 Atherosclerotic heart disease of native coronary artery without angina pectoris; R41.0 Disorientation, unspecified; R06.03 Acute respiratory distress; J44.9 Chronic obstructive pulmonary disease, unspecified; R79.89 Other specified abnormal findings of blood chemistry; I25.2 Old myocardial infarction; I50.9 Heart failure, unspecified; F17.200 Nicotine dependence, unspecified, uncomplicated; Z86.711 Personal history of pulmonary embolism; Z88.5 Allergy status to narcotic agent; Z88.8 Allergy status to other drugs, medicaments and biological substances
CPT/HCPCS: 36415; 36600; 70450; 71045; 71275; 80053; 80305; 80320; 81003; 82140; 82803; 82948; 84145; 84484; 85008; 85018; 85025; 85379; 86140; 96361; 96365; 96374; 96375; 99285; C9113; G0378; J1100; J2405; J7030; Q9967; 94760

== ENCOUNTER 2020-12-22 16:08 | Inpatient (IN) | payer MEDICARE, MEDICAID ==
[~2020-12-22] VITALS: Ht 165.1 cm; Wt 54.0 kg
[~2020-12-22 16:08] MED LIST changes: +APIX5TAB3 PO; +ASCO500T20 PO; +ATOR40TA7 PO; -ATOR40TA72 PO; -CLOP75TA34 PO; +DILT180C89 PO; +HYDR-3972 PO; +INSU100I31 SQ; +INSU100V13 SQ; +LINA5TAB4 PO; +LORA-269 PO; +MONT-40 PO; -MONT10TA32 PO; +NITR0.4T51 SL; +OMEP-50 PO; +PANT-47 PO; +PANT40SU2 PO; -PANT40TA54 PO; +PRED10TA23 PO; +ZOLP5TAB8 PO
[2020-12-22] MEDS ORDERED: aspirin 81mg tab.chew PO ONE (16:15)
[2020-12-22 16:32] LABS: BASOPHILS % (AUTO) 0.3 % (0-1); EOSINOPHILS # (AUTO) 0.1 X10'3 (0-0.9); EOSINOPHILS % (AUTO) 0.8 % (0-6); HEMATOCRIT 32.3 % (35.0-45.0); HEMOGLOBIN 10.4 g/dl (12.0-16.0); LYMPHOCYTES # (AUTO) 1.9 X10'3 (1.1-4.8); LYMPHOCYTES % (AUTO) 12.7 % (21-51); MEAN CORPUSCULAR HEMOGLOBIN 25.2 PG (27.0-31.0); MEAN CORPUSCULAR HGB CONC 32.1 g/dL (33.0-36.5); MEAN CORPUSCULAR VOLUME 78.5 FL (78-98); MONOCYTES # (AUTO) 0.5 X10'3 (0-0.9); MONOCYTES % (AUTO) 3.6 % (2-12); NEUTROPHILS # (AUTO) 12.3 X10'3 (1.8-7.7); NEUTROPHILS % (AUTO) 82.6 % (42-75); PLATELET COUNT 470 X10'3 (140-440); RED BLOOD COUNT 4.11 X10'6 (4.20-5.60); RED CELL DISTRIBUTION WIDTH 20.2 % (11.5-14.5); WHITE BLOOD COUNT 14.9 X10'3 (4.5-11.0)
[2020-12-22 16:43] LABS: ALANINE AMINOTRANSFERASE 19 U/L (12-78); ALBUMIN 3.1 G/DL (3.4-5.0); ALBUMIN/GLOBULIN RATIO 0.7 (1.1-1.5); ALKALINE PHOSPHATASE 115 IU/L (46-116); ANION GAP 12 (8-16); ASPARTATE AMINO TRANSFERASE 10 U/L (10-37); BILIRUBIN,TOTAL 0.3 MG/DL (0.1-1.0); BLOOD UREA NITROGEN 7 MG/DL (7-18); BUN/CREATININE RATIO 10.9 (6.6-38.0); CALCIUM 8.6 MG/DL (8.5-10.1); CHLORIDE 103 MMOL/L (99-107); CREATININE 0.64 MG/DL (0.40-0.90); GLUCOSE 146 MG/DL (70-104); POTASSIUM 3.7 MMOL/L (3.5-5.1); SODIUM 140 MMOL/L (135-145); TOTAL CARBON DIOXIDE 24.9 MMOL/L (24-32); TOTAL PROTEIN 7.5 G/DL (6.4-8.2); eGFR > 90 ML/MIN
[2020-12-22 16:45] LABS: PARTIAL THROMBOPLASTIN TIME 28 SECONDS (22-32)
[2020-12-22 18:14] LABS: TOTAL CELLS COUNTED 100
[2020-12-22 18:15] LABS: ANISOCYTOSIS 3+; MICROCYTOSIS 1+; PLATELET ESTIMATE INCREASED; POIKILOCYTOSIS FEW; POLYCHROMASIA 1+
[2020-12-22 18:16] LABS: BURR CELLS 1+; ELLIPTOCYTES FEW; LARGE PLATELETS FEW
[2020-12-22] MEDS ORDERED: normal saline 1000ML IV soln IVB ONE (18:35)
[2020-12-22] MEDS ORDERED: cefepime 2g/NS 100ml ADVANTAGE 100 ML IV ONE (19:30)
[2020-12-22] MEDS ORDERED: magnesium 2GM in 50ml NS 50 ML IV ONE (19:30)
[2020-12-22] MEDS ORDERED: acetaminophen 325mg tablet PO ONE (19:55)
[2020-12-22] MEDS ORDERED: methylPREDNISolone sod succ 125mg/2ml vial IV ONE (20:20)
[2020-12-22] MEDS ORDERED: ipratropium/albuterol 3ml nebule NEB ONE (20:20)
[2020-12-22] MEDS ORDERED: ketorolac tromethamine 15mg/ml inj. IV ONE (20:25)
[2020-12-22] MEDS ORDERED: fentaNYL/PF 50MCG/1 ML 2ML syringe IV ONE (20:45)
[2020-12-22] MEDS ORDERED: acetaminophen 650mg rectal suppository RC PRN (21:25)
[2020-12-22] MEDS ORDERED: ondansetron 4mg rapidly disintigrating tab PO PRN (21:25)
[2020-12-22] MEDS ORDERED: mag hydrox/Alum hydrox/simeth 30ml oral suspension PO PRN (21:25)
[2020-12-22] MEDS ORDERED: diphenhydrAMINE 25mg capsule PO PRN (21:25)
[2020-12-22] MEDS ORDERED: magnesium hydroxide 30ml (MOM) UD suspension PO PRN (21:25)
[2020-12-22] MEDS ORDERED: morphine 2 MG/ML inj. syringe IV PRN (21:25)
[2020-12-22] MEDS ORDERED: bisacodyl 10mg suppository rectal RC PRN (21:25)
[2020-12-22] MEDS ORDERED: HYDROmorphone inj. 0.5 MG/0.5 ML DISP.SYRIN IV PRN (21:25)
[2020-12-22] MEDS ORDERED: diphenhydrAMINE 50 mg/ml inj IV PRN (21:25)
[2020-12-22] MEDS ORDERED: ondansetron/PF 4mg/2ml inj IV PRN (21:25)
[2020-12-22] MEDS ORDERED: acetaminophen 325mg tablet PO PRN ×2 (21:25)
[2020-12-22] MEDS ORDERED: potassium Cl 40MEQ/1/2NS 520ml 520 ML IV PRN (21:30)
[2020-12-22] MEDS ORDERED: dextrose 50%-water 50ml dispensing syringe IV PRN ×2 (21:30)
[2020-12-22] MEDS ORDERED: potassium Cl 20 mEq SR tablet PO PRN ×2 (21:30)
[2020-12-22] MEDS ORDERED: glucagon, human recombinant 1mg kit SUBCUT PRN (21:30)
[2020-12-22] MEDS ORDERED: ipratropium/albuterol 3ml nebule NEB PRN (21:30)
[2020-12-22] MEDS ORDERED: dextrose ORAL solution 15 GM/59 ML bottle PO PRN ×2 (21:30)
[2020-12-22] MEDS ORDERED: magnesium 4gm in 100ml NS 100 ML IV PRN (21:30)
[2020-12-22] MEDS ORDERED: MESSAGE TO PHARMACY PO ONE (21:30)
[2020-12-22] MEDS ORDERED: magnesium Cl slow-release 64mg tablet PO PRN (21:30)
[2020-12-22 21:38] LABS: CLARITY,URINE CLEAR (Clear); COLOR,URINE YELLOW (Yellow); GLUCOSE, URINE NEGATIVE (Neg); KETONES,URINE NEGATIVE (Neg); LEUKOCYTE ESTERASE ,URINE NEGATIVE (Neg); NITRITES, URINE NEGATIVE (Neg); OCCULT BLOOD,URINE NEGATIVE (Neg); PROTEIN,URINE NEGATIVE (Neg); UA COLLECTION TYPE NON-SPECIFIED; UROBILINOGEN,URINE 0.2 E.U/dL (0.2-1.0)
[2020-12-22] MEDS ORDERED: HYDROcodone/acetaminophen 5mg/325mg tablet PO ONE (21:40)
[2020-12-22] MEDS: normal saline 1000ml 1,000 ML IV SCH (22:04)
[2020-12-22 22:12] LABS: PHOSPHORUS 3.6 MG/DL (2.3-4.5)
[2020-12-22 22:31] LABS: D-DIMER 0.49 MG/L FEU (0-0.50); PARTIAL THROMBOPLASTIN TIME 27 SECONDS (22-32)
[2020-12-23] MEDS ORDERED: HYDROmorphone inj. 0.5 MG/0.5 ML DISP.SYRIN IV ONE ×2 (00:05→01:35)
--- NOTE | 2020-12-23 01:26 | NUR ---
pt is having a headache that is so far unrelieved with pain medications. alerted dr. brito about the pain and he is aware. he is ordering more pain medication.
[2020-12-23] MEDS ORDERED: acetaminophen 1,000mg/100ml IV 100 ML IV ONE (01:35)
[2020-12-23] MEDS: temazepam 15mg capsule PO PRN ×2 (02:15→02:42)
[2020-12-23] MEDS: morphine 2 MG/ML inj. syringe IV PRN (04:05)
[2020-12-23] MEDS ORDERED: ONDA4TAB12 PO (04:15)
[2020-12-23] MEDS ORDERED: SPIR25TA5 PO (04:15)
[2020-12-23] MEDS ORDERED: BUDE3CAP15 PO (04:15)
[2020-12-23] MEDS ORDERED: ASPI-1071 PO (04:15)
[2020-12-23] MEDS ORDERED: CLOP75TA34 PO (04:51)
[2020-12-23] MEDS ORDERED: HYDROmorphone 1 mg/ml syringe IV ONE (05:00)
[2020-12-23 06:33] LABS: BASOPHILS % (AUTO) 0.2 % (0-1); EOSINOPHILS % (AUTO) 0 % (0-6); HEMATOCRIT 27.6 % (35.0-45.0); HEMOGLOBIN 8.9 g/dl (12.0-16.0); LYMPHOCYTES # (AUTO) 0.9 X10'3 (1.1-4.8); LYMPHOCYTES % (AUTO) 10.6 % (21-51); MEAN CORPUSCULAR HEMOGLOBIN 25.4 PG (27.0-31.0); MEAN CORPUSCULAR HGB CONC 32.5 g/dL (33.0-36.5); MEAN CORPUSCULAR VOLUME 78.2 FL (78-98); MEAN PLATELET VOLUME 7.4 FL (7.4-10.4); MONOCYTES # (AUTO) 0.1 X10'3 (0-0.9); MONOCYTES % (AUTO) 0.9 % (2-12); NEUTROPHILS # (AUTO) 7.7 X10'3 (1.8-7.7); NEUTROPHILS % (AUTO) 88.3 % (42-75); PLATELET COUNT 410 X10'3 (140-440); RED BLOOD COUNT 3.53 X10'6 (4.20-5.60); RED CELL DISTRIBUTION WIDTH 20.4 % (11.5-14.5); WHITE BLOOD COUNT 8.7 X10'3 (4.5-11.0)
[2020-12-23 06:57] LABS: ALANINE AMINOTRANSFERASE 17 U/L (12-78); ALBUMIN 2.6 G/DL (3.4-5.0); ALBUMIN/GLOBULIN RATIO 0.7 (1.1-1.5); ALKALINE PHOSPHATASE 111 IU/L (46-116); ANION GAP 11 (8-16); ASPARTATE AMINO TRANSFERASE 7 U/L (10-37); BILIRUBIN,TOTAL 0.3 MG/DL (0.1-1.0); BLOOD UREA NITROGEN 13 MG/DL (7-18); BUN/CREATININE RATIO 14.3 (6.6-38.0); CALCIUM 7.9 MG/DL (8.5-10.1); CHLORIDE 100 MMOL/L (99-107); CREATININE 0.91 MG/DL (0.40-0.90); MAGNESIUM 1.9 MG/DL (1.5-2.4); SODIUM 132 MMOL/L (135-145); TOTAL CARBON DIOXIDE 20.6 MMOL/L (24-32); TOTAL PROTEIN 6.5 G/DL (6.4-8.2); eGFR 63 ML/MIN
[2020-12-23 07:49] LABS: GLUCOSE 468 MG/DL (70-104)
[2020-12-23] MEDS: azithromycin/NS 500mg/250ml 250 ML IV SCH (08:00)
[2020-12-23] MEDS: docusate sod 100mg capsule PO SCH ×2 (08:00→21:10)
[2020-12-23] MEDS: K and/or MAG REPLACEMENT MC SCH ×2 (08:00→20:00)
[2020-12-23] MEDS: normal saline 1000ml 1,000 ML IV SCH (09:30)
--- NOTE | 2020-12-23 10:11 | NUR ---
pt iv in external REJ is very positional. changed dressing. repositioned pt head to have ivf run. attempted to change iv unsuccessful x2. iv running while pt sitting up in bed.
[2020-12-23] MEDS ORDERED: APIX5TAB3 PO (10:35)
[2020-12-23 11:00] VITALS: BP 142/65
[2020-12-23] MEDS: insulin Lispro (HumaLOG) vial - multi-dose SQ SCH ×3 (11:30→23:46)
--- NOTE | 2020-12-23 11:30 | NUR ---
Aprox this time md mancini was paged regarding bg of "hi" followed by recheck of bg 550 after running glucose controls.
--- NOTE | 2020-12-23 12:30 | NUR ---
Spoke to MD mancini regarding available report of nm test. says he plans to discharge and diet ordered, faxed kitchen for food
[2020-12-23] MEDS ORDERED: nitroGLYCERIN 0.4mg SUBLingual tab SL PRN (12:35)
[2020-12-23] MEDS ORDERED: non-formulary drug (Ondansetron (Ondansetron Odt) 1 TAB) PO PRN (12:35)
[2020-12-23] MEDS ORDERED: HYDROcodone/acetaminophen 10/325mg tab PO PRN (12:35)
[2020-12-23] MEDS ORDERED: non-formulary drug (Insulin Aspart (Novolog) 1 UNITS) SQ PRN (12:35)
[2020-12-23] MEDS ORDERED: metoprolol succinate 25mg (24-HOUR) SR. Tablet PO ONE (12:35)
[2020-12-23] MEDS ORDERED: predniSONE 20 mg tablet PO ONE (12:45)
[2020-12-23] MEDS ORDERED: levalbuterol 1.25mg/0.5ml nebule IH PRN (12:50)
--- NOTE | 2020-12-23 12:53 | NUR ---
Spoke to MD Stock regarding bg 450 after previous tx of 550, orders received
[2020-12-23] MEDS ORDERED: insulin Lispro (HumaLOG) vial - multi-dose SQ ONE (12:55)
--- NOTE | 2020-12-23 14:00 | NUR ---
Attempt to start a PIV unsuccessfully x2 to arms. R EJ cont to be positional but patent
--- NOTE | 2020-12-23 14:00 | NUR ---
2 RN skin check completed with KEN Moscoso
[2020-12-23] MEDS: ipratropium 0.5 MG/2.5ML nebule IH SCH ×2 (14:20→20:00)
[2020-12-23] MEDS: CefTRIAXone/D5W-Rocephin 1gm 50 ML IV SCH (14:47)
[2020-12-23] MEDS: HYDROcodone/acetaminophen 10/325mg tab PO PRN (14:52)
[2020-12-23 15:00] VITALS: BP 142/65
[2020-12-23 16:48] VITALS: BP 128/84
--- NOTE | 2020-12-23 18:21 | NUR ---
Problems reprioritized. Patient report given, questions answered & plan of care reviewed with Kasey ROGERS.
[2020-12-23 19:00] VITALS: BP 134/84
[2020-12-23] MEDS: insulin glargine (Lantus) pen - multi-dose SQ SCH (21:00)
[2020-12-23] MEDS: ascorbic acid 500mg tablet PO SCH (21:09)
[2020-12-23] MEDS: busPIRone 15mg tablet PO SCH (21:10)
[2020-12-23] MEDS: lactobacillus rhamnosus 10,000 MMU CELLS/CAPSULE PO SCH (21:10)
[2020-12-23] MEDS: doxepin 25mg capsule PO SCH (21:10)
[2020-12-23] MEDS: LORazepam 1 MG tablet PO PRN (21:10)
[2020-12-23] MEDS: pantoprazole 40mg Tablet.DR PO SCH (21:11)
[2020-12-23 23:00] VITALS: BP 157/63
[2020-12-24] MEDS: ipratropium 0.5 MG/2.5ML nebule IH SCH ×4 (02:48→20:00)
[2020-12-24 03:00] VITALS: BP 118/64
--- NOTE | 2020-12-24 06:18 | NUR ---
Patient in room PCU 3014. I have received report from KEN Parks and had the opportunity to ask questions and assume patient care.
[2020-12-24 07:04] LABS: BASOPHILS % (AUTO) 0.4 % (0-1); EOSINOPHILS # (AUTO) 0.1 X10'3 (0-0.9); EOSINOPHILS % (AUTO) 0.7 % (0-6); HEMATOCRIT 24.8 % (35.0-45.0); LYMPHOCYTES # (AUTO) 3.8 X10'3 (1.1-4.8); LYMPHOCYTES % (AUTO) 31.5 % (21-51); MEAN CORPUSCULAR HEMOGLOBIN 25.1 PG (27.0-31.0); MEAN CORPUSCULAR HGB CONC 32.3 g/dL (33.0-36.5); MEAN CORPUSCULAR VOLUME 77.5 FL (78-98); MEAN PLATELET VOLUME 7.1 FL (7.4-10.4); MONOCYTES # (AUTO) 0.6 X10'3 (0-0.9); MONOCYTES % (AUTO) 5.2 % (2-12); NEUTROPHILS # (AUTO) 7.6 X10'3 (1.8-7.7); NEUTROPHILS % (AUTO) 62.2 % (42-75); PLATELET COUNT 409 X10'3 (140-440); RED CELL DISTRIBUTION WIDTH 19.5 % (11.5-14.5); WHITE BLOOD COUNT 12.2 X10'3 (4.5-11.0)
[2020-12-24 07:19] LABS: ALANINE AMINOTRANSFERASE 16 U/L (12-78); ALBUMIN 2.4 G/DL (3.4-5.0); ALBUMIN/GLOBULIN RATIO 0.7 (1.1-1.5); ALKALINE PHOSPHATASE 122 IU/L (46-116); ANION GAP 7 (8-16); ASPARTATE AMINO TRANSFERASE 8 U/L (10-37); BILIRUBIN,TOTAL 0.2 MG/DL (0.1-1.0); BLOOD UREA NITROGEN 13 MG/DL (7-18); BUN/CREATININE RATIO 24.1 (6.6-38.0); CALCIUM 8.4 MG/DL (8.5-10.1); CHLORIDE 110 MMOL/L (99-107); CREATININE 0.54 MG/DL (0.40-0.90); GLUCOSE 55 MG/DL (70-104); MAGNESIUM 1.8 MG/DL (1.5-2.4); POTASSIUM 3.8 MMOL/L (3.5-5.1); SODIUM 144 MMOL/L (135-145); TOTAL CARBON DIOXIDE 26.7 MMOL/L (24-32); eGFR > 90 ML/MIN
[2020-12-24 07:30] VITALS: BP 100/48
[2020-12-24] MEDS ORDERED: pantoprazole 40mg Tablet.DR PO SCH (07:30)
--- NOTE | 2020-12-24 07:30 | NUR ---
A.M. blood glucose check revealed low glucose of 52. Pt reported fatigue and nausea. 1 bottle of liquid glucose given per orders. Subsequent check 15 minutes later shows increased blood glucose of 123, with some resolution of symptoms. Pt reports glucose gave her nausea and is requesting zofran. Will continue to monitor per protocol.
[2020-12-24] MEDS ORDERED: lisinopril 20mg tablet PO SCH (08:00)
[2020-12-24] MEDS: K and/or MAG REPLACEMENT MC SCH ×2 (08:00→20:00)
[2020-12-24] MEDS ORDERED: clopidogrel 75mg tablet PO SCH (08:00)
[2020-12-24] MEDS ORDERED: predniSONE 20 mg tablet PO SCH (08:30)
[2020-12-24] MEDS: CefTRIAXone/D5W-Rocephin 1gm 50 ML IV SCH ×2 (09:07→13:20)
[2020-12-24] MEDS: azithromycin/NS 500mg/250ml 250 ML IV SCH ×2 (09:07→16:24)
[2020-12-24] MEDS: lactobacillus rhamnosus 10,000 MMU CELLS/CAPSULE PO SCH ×2 (09:08→21:38)
[2020-12-24] MEDS: linagliptin 5mg tablet PO SCH (09:08)
[2020-12-24] MEDS: aspirin 81mg, enteric-coated 1 TAB TABLET.DR PO SCH (09:08)
[2020-12-24] MEDS: montelukast 10mg tablet PO SCH (09:09)
[2020-12-24] MEDS: busPIRone 15mg tablet PO SCH ×2 (09:09→20:00)
[2020-12-24] MEDS: diltiazem CD 180mg cap (once-daily) PO SCH (09:10)
[2020-12-24] MEDS: docusate sod 100mg capsule PO SCH ×2 (09:10→21:38)
[2020-12-24] MEDS: duloxetine 30mg CAPSULE.DR PO SCH (09:10)
[2020-12-24] MEDS: metoprolol succinate 25mg (24-HOUR) SR. Tablet PO SCH (09:10)
[2020-12-24] MEDS: ascorbic acid 500mg tablet PO SCH ×2 (09:11→21:38)
[2020-12-24] MEDS: pantoprazole 40mg Tablet.DR PO SCH ×2 (09:12→21:39)
[2020-12-24] MEDS: spironolactone 25 MG tablet PO SCH (09:12)
[2020-12-24] MEDS: atorvastatin 20mg tablet PO SCH (09:12)
--- NOTE | 2020-12-24 09:17 | NUR ---
Pt EJ IV is becoming less functional. Spoke to Dr. Stock who gave an order for midline placment. Order entered and message sent to PICC nurse pager. Awaiting PICC nurse for placement.
--- NOTE | 2020-12-24 09:18 | NUR ---
Pt with T2DM with A1c 9.6% 11/15 per EMR. Pt seen by RD at previous admit 11/18 for written and verbal DM education and RD contact information. No further education planned at this time. Will continue to follow. Addendum: 12/24/20 at [address] Amended: Links added.
[2020-12-24] MEDS: levoTHYROXINE 25mcg tablet PO SCH (09:24)
[2020-12-24] MEDS: LORazepam 1 MG tablet PO PRN (09:30)
[2020-12-24] MEDS: HYDROcodone/acetaminophen 5mg/325mg tablet PO PRN (10:39)
[2020-12-24 11:00] VITALS: BP 94/52
[2020-12-24 11:53] LABS: ANISOCYTOSIS 2+; MICROCYTOSIS 1+; PLATELET ESTIMATE NORMAL
[2020-12-24 11:54] LABS: HYPOCHROMASIA 2+
[2020-12-24 11:57] LABS: BURR CELLS FEW; ELLIPTOCYTES FEW; SCHISTOCYTES FEW
--- NOTE | 2020-12-24 12:06 | NUR ---
Paged Dr Stock re: pt b/p: PAGER ID: [phone] MESSAGE: Jim Carson 3014B hypotensive 84/43, 85/48, 91/51. Would you like a 250 bolus NS? Genoveva [phone]
--- NOTE | 2020-12-24 13:12 | NUR ---
Patient with failed IV access today, once access established, abx administered within the appropriate time frame.
[2020-12-24] MEDS: morphine 2 MG/ML inj. syringe IV PRN (13:21)
[2020-12-24 15:00] VITALS: BP 134/70
[2020-12-24] MEDS: methylPREDNISolone sod succ 125mg/2ml vial IV SCH (16:25)
[2020-12-24] MEDS: HYDROcodone/acetaminophen 10/325mg tab PO PRN (16:25)
--- NOTE | 2020-12-24 17:23 | NUR ---
ASKED BY PRIMARY TO TO CHECK BLOOD SUGAR 405 KEN LOUISE AWARE
[2020-12-24] MEDS: insulin Lispro (HumaLOG) vial - multi-dose SQ SCH ×3 (17:39→21:51)
--- NOTE | 2020-12-24 17:41 | NUR ---
Blood sugar check by another RN shows glucose of 405. Administered 19 units humalog, per protocol. patient expressed good understanding of the s/sx of low sugar, and will notify nursing staff immediately if she feels affected. Will monitor closely per unit protocol.
--- NOTE | 2020-12-24 18:33 | NUR ---
Problems reprioritized. Patient report given, questions answered & plan of care reviewed with KEN Parks.
[2020-12-24 19:00] VITALS: BP 124/69
[2020-12-24] MEDS: ipratropium/albuterol 3ml nebule NEB SCH ×2 (20:29→23:00)
[2020-12-24] MEDS: normal saline 1000ml 1,000 ML IV SCH (21:25)
[2020-12-24] MEDS: doxepin 25mg capsule PO SCH (21:39)
[2020-12-24] MEDS: insulin glargine (Lantus) pen - multi-dose SQ SCH (21:54)
[2020-12-24 23:00] VITALS: BP 105/50
[2020-12-25] MEDS: methylPREDNISolone sod succ 125mg/2ml vial IV SCH ×3 (00:31→16:00)
[2020-12-25] MEDS: morphine 2 MG/ML inj. syringe IV PRN (00:31)
[2020-12-25] MEDS: ipratropium 0.5 MG/2.5ML nebule IH SCH ×3 (02:00→19:59)
[2020-12-25] MEDS: ipratropium/albuterol 3ml nebule NEB SCH ×5 (02:38→20:01)
[2020-12-25 06:00] VITALS: BP 104/56
--- NOTE | 2020-12-25 06:23 | NUR ---
Patient in room PCU 3014. I have received report from KEN Parks and had the opportunity to ask questions and assume patient care.
[2020-12-25 07:12] LABS: BASOPHILS % (AUTO) 0.2 % (0-1); EOSINOPHILS % (AUTO) 0 % (0-6); HEMATOCRIT 25.4 % (35.0-45.0); HEMOGLOBIN 8.1 g/dl (12.0-16.0); LYMPHOCYTES # (AUTO) 1.1 X10'3 (1.1-4.8); LYMPHOCYTES % (AUTO) 10.6 % (21-51); MEAN CORPUSCULAR HEMOGLOBIN 25.2 PG (27.0-31.0); MEAN CORPUSCULAR HGB CONC 31.8 g/dL (33.0-36.5); MEAN CORPUSCULAR VOLUME 79.1 FL (78-98); MEAN PLATELET VOLUME 7.3 FL (7.4-10.4); MONOCYTES # (AUTO) 0.2 X10'3 (0-0.9); MONOCYTES % (AUTO) 1.7 % (2-12); NEUTROPHILS # (AUTO) 8.8 X10'3 (1.8-7.7); NEUTROPHILS % (AUTO) 87.5 % (42-75); PLATELET COUNT 363 X10'3 (140-440); RED BLOOD COUNT 3.22 X10'6 (4.20-5.60); RED CELL DISTRIBUTION WIDTH 19.8 % (11.5-14.5)
[2020-12-25 07:22] LABS: BILIRUBIN,TOTAL 0.2 MG/DL (0.1-1.0); BLOOD UREA NITROGEN 15 MG/DL (7-18); BUN/CREATININE RATIO 20.5 (6.6-38.0); CHLORIDE 105 MMOL/L (99-107); CREATININE 0.73 MG/DL (0.40-0.90); GLUCOSE 331 MG/DL (70-104); POTASSIUM 4.7 MMOL/L (3.5-5.1); SODIUM 138 MMOL/L (135-145); eGFR 81 ML/MIN
[2020-12-25 07:24] LABS: ALANINE AMINOTRANSFERASE 22 U/L (12-78); ALBUMIN 2.4 G/DL (3.4-5.0); ALBUMIN/GLOBULIN RATIO 0.6 (1.1-1.5); ALKALINE PHOSPHATASE 91 IU/L (46-116); ANION GAP 9 (8-16); ASPARTATE AMINO TRANSFERASE 16 U/L (10-37); CALCIUM 8.1 MG/DL (8.5-10.1); MAGNESIUM 1.5 MG/DL (1.5-2.4); TOTAL CARBON DIOXIDE 23.9 MMOL/L (24-32); TOTAL PROTEIN 6.1 G/DL (6.4-8.2)
[2020-12-25] MEDS: K and/or MAG REPLACEMENT MC SCH ×2 (08:00→20:00)
[2020-12-25 08:27] LABS: ANISOCYTOSIS 2+; HYPOCHROMASIA 1+; MICROCYTOSIS 1+; PLATELET ESTIMATE NORMAL; POLYCHROMASIA 1+
[2020-12-25 08:28] LABS: BURR CELLS 1+; ELLIPTOCYTES FEW; SCHISTOCYTES FEW; TARGET CELLS FEW
[2020-12-25] MEDS: metoprolol succinate 25mg (24-HOUR) SR. Tablet PO SCH (09:15)
[2020-12-25] MEDS: diltiazem CD 180mg cap (once-daily) PO SCH (09:15)
[2020-12-25] MEDS: lactobacillus rhamnosus 10,000 MMU CELLS/CAPSULE PO SCH ×2 (09:17→21:40)
[2020-12-25] MEDS: busPIRone 15mg tablet PO SCH ×2 (09:37→21:40)
[2020-12-25] MEDS: docusate sod 100mg capsule PO SCH ×2 (09:38→21:40)
[2020-12-25] MEDS: budesonide 3mg SR capsule PO SCH (09:39)
[2020-12-25] MEDS: linagliptin 5mg tablet PO SCH (09:39)
[2020-12-25] MEDS: montelukast 10mg tablet PO SCH (09:40)
[2020-12-25] MEDS: atorvastatin 20mg tablet PO SCH (09:40)
[2020-12-25] MEDS: pantoprazole 40mg Tablet.DR PO SCH ×2 (09:40→21:40)
[2020-12-25] MEDS: aspirin 81mg, enteric-coated 1 TAB TABLET.DR PO SCH (09:40)
[2020-12-25] MEDS: spironolactone 25 MG tablet PO SCH (09:41)
[2020-12-25] MEDS: levoTHYROXINE 25mcg tablet PO SCH (09:41)
[2020-12-25] MEDS: duloxetine 30mg CAPSULE.DR PO SCH (09:42)
[2020-12-25] MEDS: ascorbic acid 500mg tablet PO SCH ×2 (09:42→22:46)
[2020-12-25] MEDS: insulin Lispro (HumaLOG) vial - multi-dose SQ SCH ×3 (09:51→22:42)
[2020-12-25] MEDS: HYDROcodone/acetaminophen 5mg/325mg tablet PO PRN ×2 (09:55→21:42)
[2020-12-25] MEDS ORDERED: azithromycin 250mg tablet PO SCH (10:20)
[2020-12-25 11:00] VITALS: BP 125/63
[2020-12-25] MEDS: CefTRIAXone/D5W-Rocephin 1gm 50 ML IV SCH (12:00)
--- NOTE | 2020-12-25 14:57 | NUR ---
DM consult: A new A1c was obtained this visit, up to 11.8% from previous 9.6% 11/15. Pt seen at bedside for written and verbal DM education. Pt states she sees a physician monthly for DM management however is hoping to get another physician for additional assistance. Pt states she takes her DM medications per rx without issues. Pt reports checking her BG levels three times a day with morning results in the 200s and reports sometimes her blood sugars go as high or even higher than 600 mg/dL. Pt unsure as to why her blood sugars get that high or why her A1c has increased though does report taking multiple medications at home and pt is wondering if that could have an impact. RD encouraged pt to f/u with physician regarding further DM management. Pt states she monitors and limits her carb intake for additional DM management. RD discussed additional ways to reduce BG levels, including exercise, however pt reports difficulty with exercising d/t SOB. All of patient's questions were answered at this time. RD contact information provided and pt encouraged to reach out for further questions. Pt endorses a good appetite which is evident with documented 75-100% PO intake on CHO controlled diet. Pt states she isn't getting full from meals and agrees to double protein TIDWM, d/w dietary. Pt denies food allergies or difficulty chewing/swallowing. No LBM in EMR, pt reports small BM this morning and denies constipation/diarrhea. Pt receiving routine bowel care with additional PRN bowel care available. Will continue to follow. Addendum: 12/25/20 at [address] Amended: Links added.
[2020-12-25 15:00] VITALS: BP 118/64
--- NOTE | 2020-12-25 18:30 | NUR ---
Patient in room PCU 3014. I have received report from Genoveva ROGERS and had the opportunity to ask questions and assume patient care.
[2020-12-25 19:00] VITALS: BP 112/51
[2020-12-25] MEDS: LORazepam 1 MG tablet PO PRN (21:40)
[2020-12-25] MEDS: doxepin 25mg capsule PO SCH (21:41)
[2020-12-25] MEDS: insulin glargine (Lantus) pen - multi-dose SQ SCH (22:43)
[2020-12-26] VITALS (15 sets, daily range): BP systolic 113–160; BP diastolic 48–74
[2020-12-26] MEDS: zolpidem 5mg tablet PO PRN ×2 (00:30→03:07)
[2020-12-26] MEDS: ipratropium 0.5 MG/2.5ML nebule IH SCH ×2 (02:00→08:00)
[2020-12-26] MEDS: ipratropium/albuterol 3ml nebule NEB SCH ×6 (02:45→23:00)
--- NOTE | 2020-12-26 06:30 | NUR ---
Problems reprioritized. Patient report given, questions answered & plan of care reviewed with Anthony ROGERS traveler.
[2020-12-26] MEDS: methylPREDNISolone sod succ 125mg/2ml vial IV SCH ×4 (07:25→15:41)
[2020-12-26] MEDS: ascorbic acid 500mg tablet PO SCH ×2 (07:26→20:43)
[2020-12-26] MEDS: montelukast 10mg tablet PO SCH (07:26)
[2020-12-26] MEDS: aspirin 81mg, enteric-coated 1 TAB TABLET.DR PO SCH (07:26)
[2020-12-26] MEDS: duloxetine 30mg CAPSULE.DR PO SCH (07:26)
[2020-12-26] MEDS: azithromycin 250mg tablet PO SCH (07:26)
[2020-12-26] MEDS: pantoprazole 40mg Tablet.DR PO SCH ×2 (07:27→20:44)
[2020-12-26] MEDS: linagliptin 5mg tablet PO SCH (07:27)
[2020-12-26] MEDS: levoTHYROXINE 25mcg tablet PO SCH (07:27)
[2020-12-26] MEDS: diltiazem CD 180mg cap (once-daily) PO SCH (07:27)
[2020-12-26] MEDS: spironolactone 25 MG tablet PO SCH (07:28)
[2020-12-26] MEDS: docusate sod 100mg capsule PO SCH ×2 (07:29→20:44)
[2020-12-26] MEDS: atorvastatin 20mg tablet PO SCH (07:29)
[2020-12-26] MEDS: busPIRone 15mg tablet PO SCH ×2 (07:29→20:43)
[2020-12-26] MEDS: budesonide 3mg SR capsule PO SCH (07:29)
[2020-12-26] MEDS: metoprolol succinate 25mg (24-HOUR) SR. Tablet PO SCH (07:29)
[2020-12-26] MEDS: lactobacillus rhamnosus 10,000 MMU CELLS/CAPSULE PO SCH ×2 (07:29→20:44)
[2020-12-26] MEDS: HYDROcodone/acetaminophen 5mg/325mg tablet PO PRN (07:33)
[2020-12-26] MEDS: LORazepam 1 MG tablet PO PRN (07:34)
[2020-12-26 07:39] LABS: BASOPHILS % (AUTO) 0.2 % (0-1); EOSINOPHILS % (AUTO) 0 % (0-6); HEMATOCRIT 22.8 % (35.0-45.0); HEMOGLOBIN 7.2 g/dl (12.0-16.0); LYMPHOCYTES # (AUTO) 1.6 X10'3 (1.1-4.8); LYMPHOCYTES % (AUTO) 13.6 % (21-51); MEAN CORPUSCULAR HEMOGLOBIN 24.9 PG (27.0-31.0); MEAN CORPUSCULAR HGB CONC 31.8 g/dL (33.0-36.5); MEAN CORPUSCULAR VOLUME 78.2 FL (78-98); MEAN PLATELET VOLUME 7.3 FL (7.4-10.4); MONOCYTES # (AUTO) 0.7 X10'3 (0-0.9); MONOCYTES % (AUTO) 6.1 % (2-12); NEUTROPHILS # (AUTO) 9.3 X10'3 (1.8-7.7); NEUTROPHILS % (AUTO) 80.1 % (42-75); PLATELET COUNT 375 X10'3 (140-440); RED BLOOD COUNT 2.91 X10'6 (4.20-5.60); RED CELL DISTRIBUTION WIDTH 19.7 % (11.5-14.5); WHITE BLOOD COUNT 11.7 X10'3 (4.5-11.0)
[2020-12-26] MEDS: CefTRIAXone/D5W-Rocephin 1gm 50 ML IV SCH (07:41)
[2020-12-26 08:43] LABS: ALANINE AMINOTRANSFERASE 17 U/L (12-78); ALBUMIN 2.2 G/DL (3.4-5.0); ALBUMIN/GLOBULIN RATIO 0.7 (1.1-1.5); ALKALINE PHOSPHATASE 113 IU/L (46-116); ANION GAP 11 (8-16); ASPARTATE AMINO TRANSFERASE 7 U/L (10-37); BILIRUBIN,TOTAL 0.1 MG/DL (0.1-1.0); BLOOD UREA NITROGEN 19 MG/DL (7-18); BUN/CREATININE RATIO 25.3 (6.6-38.0); CALCIUM 7.7 MG/DL (8.5-10.1); CHLORIDE 106 MMOL/L (99-107); CREATININE 0.75 MG/DL (0.40-0.90); GLUCOSE 351 MG/DL (70-104); MAGNESIUM 1.7 MG/DL (1.5-2.4); POTASSIUM 3.6 MMOL/L (3.5-5.1); SODIUM 139 MMOL/L (135-145); TOTAL CARBON DIOXIDE 22.4 MMOL/L (24-32); TOTAL PROTEIN 5.5 G/DL (6.4-8.2); eGFR 78 ML/MIN
--- NOTE | 2020-12-26 13:48 | NUR ---
Pt rested in room throughout shift. Pts care has been prioritized, unable to perform some task due to assigned patient assignment. Dr. Stock and scrap charger made aware of inability to obtain IV access for patient. journeyman glazier at bedside trying to obtain peripheral access for patient. Pt is scheduled to have a PICC line placed tomorrow. Will continue to monitor and prioritize care as needed.
[2020-12-26] MEDS ORDERED: levoFLOXACIN 500mg tablet PO ONE (14:25)
[2020-12-26] MEDS: insulin Lispro (HumaLOG) vial - multi-dose SQ SCH (14:52)
[2020-12-26] MEDS: K and/or MAG REPLACEMENT MC SCH ×2 (14:55→20:00)
[2020-12-26] MEDS: morphine 2 MG/ML inj. syringe IV PRN ×2 (15:41→20:43)
--- NOTE | 2020-12-26 19:18 | NUR ---
PAGER ID: [phone] MESSAGE: Ammy Fernandez [id number] Dx: COPD exac/decreasing H&H 7.2.8 CRITICAL FINDING: GI NUKEMED + acute GI bleed-Diffuse Gastritis w/active bleed into gastric lumen per Dr Mireles Type/Screen consent for blood complete Nannette, PCU 2908
[2020-12-26] MEDS: doxepin 25mg capsule PO SCH (20:44)
[2020-12-26] MEDS: insulin glargine (Lantus) pen - multi-dose SQ SCH (20:49)
[2020-12-27] VITALS (13 sets, daily range): BP systolic 113–176; BP diastolic 50–95
[2020-12-27] MEDS: normal saline 1000ml 1,000 ML IV SCH (01:35)
[2020-12-27] MEDS: methylPREDNISolone sod succ 125mg/2ml vial IV SCH ×2 (01:35→07:14)
[2020-12-27] MEDS: morphine 2 MG/ML inj. syringe IV PRN (01:36)
[2020-12-27] MEDS: ipratropium/albuterol 3ml nebule NEB SCH ×6 (02:14→22:45)
[2020-12-27 06:22] LABS: BASOPHILS % (AUTO) 0.6 % (0-1); EOSINOPHILS % (AUTO) 0 % (0-6); HEMATOCRIT 29.2 % (35.0-45.0); HEMOGLOBIN 9.4 g/dl (12.0-16.0); LYMPHOCYTES # (AUTO) 0.9 X10'3 (1.1-4.8); LYMPHOCYTES % (AUTO) 10.3 % (21-51); MEAN CORPUSCULAR HEMOGLOBIN 25.5 PG (27.0-31.0); MEAN CORPUSCULAR HGB CONC 32.3 g/dL (33.0-36.5); MEAN PLATELET VOLUME 7.4 FL (7.4-10.4); MONOCYTES # (AUTO) 0.2 X10'3 (0-0.9); MONOCYTES % (AUTO) 2.6 % (2-12); NEUTROPHILS # (AUTO) 7.2 X10'3 (1.8-7.7); NEUTROPHILS % (AUTO) 86.5 % (42-75); PLATELET COUNT 404 X10'3 (140-440); WHITE BLOOD COUNT 8.3 X10'3 (4.5-11.0)
--- NOTE | 2020-12-27 06:33 | NUR ---
Problems reprioritized. Patient report given, questions answered & plan of care reviewed with KEN Waite.
[2020-12-27 06:44] LABS: ALANINE AMINOTRANSFERASE 14 U/L (12-78); ALBUMIN 2.2 G/DL (3.4-5.0); ALBUMIN/GLOBULIN RATIO 0.6 (1.1-1.5); ALKALINE PHOSPHATASE 103 IU/L (46-116); ANION GAP 9 (8-16); ASPARTATE AMINO TRANSFERASE 17 U/L (10-37); BILIRUBIN,TOTAL 0.3 MG/DL (0.1-1.0); BLOOD UREA NITROGEN 22 MG/DL (7-18); BUN/CREATININE RATIO 28.9 (6.6-38.0); CHLORIDE 108 MMOL/L (99-107); CREATININE 0.76 MG/DL (0.40-0.90); GLUCOSE 316 MG/DL (70-104); SODIUM 140 MMOL/L (135-145); TOTAL CARBON DIOXIDE 22.9 MMOL/L (24-32); TOTAL PROTEIN 5.7 G/DL (6.4-8.2); eGFR 77 ML/MIN
[2020-12-27 06:46] LABS: POTASSIUM 4.2 MMOL/L (3.5-5.1)
[2020-12-27] MEDS: metoprolol succinate 25mg (24-HOUR) SR. Tablet PO SCH (07:14)
[2020-12-27] MEDS: CefTRIAXone/D5W-Rocephin 1gm 50 ML IV SCH (07:14)
[2020-12-27] MEDS: linagliptin 5mg tablet PO SCH (07:18)
[2020-12-27] MEDS: diltiazem CD 180mg cap (once-daily) PO SCH (07:18)
[2020-12-27] MEDS: ascorbic acid 500mg tablet PO SCH ×2 (07:19→19:36)
[2020-12-27] MEDS: pantoprazole 40mg Tablet.DR PO SCH ×2 (07:19→19:37)
[2020-12-27] MEDS: duloxetine 30mg CAPSULE.DR PO SCH (07:19)
[2020-12-27] MEDS: busPIRone 15mg tablet PO SCH ×2 (07:19→19:35)
[2020-12-27] MEDS: levoTHYROXINE 25mcg tablet PO SCH (07:19)
[2020-12-27] MEDS: atorvastatin 20mg tablet PO SCH (07:19)
[2020-12-27] MEDS: spironolactone 25 MG tablet PO SCH (07:20)
[2020-12-27] MEDS: azithromycin 250mg tablet PO SCH (07:20)
[2020-12-27] MEDS: lactobacillus rhamnosus 10,000 MMU CELLS/CAPSULE PO SCH ×2 (07:21→19:36)
[2020-12-27] MEDS: montelukast 10mg tablet PO SCH (07:21)
[2020-12-27] MEDS: K and/or MAG REPLACEMENT MC SCH ×2 (08:00→20:00)
[2020-12-27] MEDS: docusate sod 100mg capsule PO SCH ×2 (08:45→19:36)
[2020-12-27] MEDS: budesonide 3mg SR capsule PO SCH (09:25)
[2020-12-27] MEDS: insulin Lispro (HumaLOG) vial - multi-dose SQ SCH ×2 (09:28→19:41)
[2020-12-27] MEDS: levoFLOXACIN 500mg tablet PO SCH (11:14)
[2020-12-27] MEDS: HYDROcodone/acetaminophen 10/325mg tab PO PRN ×2 (11:19→19:35)
--- NOTE | 2020-12-27 12:18 | NUR ---
Initial: Pt admitted w/ increasing SOB and chest pain per EMR. Pt able to eat moderately well on CCHO diet, avg intake 66% x 9 meals w/ addition of double protein TID meeting needs. LBM 12/25 receiving routine colace. No new nutrition intervention implemented at this time, will continue to monitor. Recs: 1. Continue CCHO diet as tolerated 2. Double Protein TID for satiety 3. Bowel care per rx 4. Scaled wt this admit, subsequent weekly wts Addendum: 12/27/20 at [address] Amended: Links added.
[2020-12-27] MEDS ORDERED: MIDAZolam 1 MG/ML 5ML VIAL ONE (15:09)
[2020-12-27] MEDS ORDERED: fentaNYL/PF 50MCG/1 ML 2ML syringe ONE (15:09)
[2020-12-27] MEDS ORDERED: LIDOcaine Viscous 15ml cup ONE (15:09)
[2020-12-27] MEDS ORDERED: fluconazole 100mg tablet PO ONE (16:00)
--- NOTE | 2020-12-27 18:30 | NUR ---
Patient in room PCU 3014B. I have received report from KEN Brunson and had the opportunity to ask questions and assume patient care.
[2020-12-27] MEDS: methylPREDNISolone sod succ/PF 40mg inj. IV SCH (19:36)
[2020-12-27] MEDS: LORazepam 1 MG tablet PO PRN (19:36)
[2020-12-27] MEDS: doxepin 25mg capsule PO SCH (21:15)
[2020-12-27] MEDS: insulin glargine (Lantus) pen - multi-dose SQ SCH (21:27)
[2020-12-27] MEDS: zolpidem 5mg tablet PO PRN (21:27)
[2020-12-28] MEDS: temazepam 15mg capsule PO PRN
[2020-12-28 02:00] VITALS: BP 119/47
[2020-12-28] MEDS: HYDROcodone/acetaminophen 10/325mg tab PO PRN (02:02)
--- NOTE | 2020-12-28 06:05 | NUR ---
Problems reprioritized. Patient report given, questions answered & plan of care reviewed with KEN Domingo.
--- NOTE | 2020-12-28 06:30 | NUR ---
Patient in room PCU 3014. I have received report from Marichuy ROGERS and had the opportunity to ask questions and assume patient care. Patient is resting comfortably in bed, all needs met at this time.
[2020-12-28] MEDS: ipratropium/albuterol 3ml nebule NEB SCH ×3 (07:48→15:00)
[2020-12-28 07:53] VITALS: BP_SYST 140
[2020-12-28] MEDS: CefTRIAXone/D5W-Rocephin 1gm 50 ML IV SCH (07:53)
[2020-12-28] MEDS: ascorbic acid 500mg tablet PO SCH (07:53)
[2020-12-28] MEDS: spironolactone 25 MG tablet PO SCH (07:53)
[2020-12-28] MEDS: atorvastatin 20mg tablet PO SCH (07:54)
[2020-12-28] MEDS: diltiazem CD 180mg cap (once-daily) PO SCH (07:54)
[2020-12-28] MEDS: linagliptin 5mg tablet PO SCH (07:54)
[2020-12-28] MEDS: metoprolol succinate 25mg (24-HOUR) SR. Tablet PO SCH (07:54)
[2020-12-28] MEDS: azithromycin 250mg tablet PO SCH (07:54)
[2020-12-28] MEDS: pantoprazole 40mg Tablet.DR PO SCH (07:54)
[2020-12-28] MEDS: levoTHYROXINE 25mcg tablet PO SCH (07:54)
[2020-12-28] MEDS: montelukast 10mg tablet PO SCH (07:54)
[2020-12-28] MEDS: duloxetine 30mg CAPSULE.DR PO SCH (07:55)
[2020-12-28] MEDS: methylPREDNISolone sod succ/PF 40mg inj. IV SCH (07:55)
[2020-12-28] MEDS: busPIRone 15mg tablet PO SCH (07:55)
[2020-12-28] MEDS: lactobacillus rhamnosus 10,000 MMU CELLS/CAPSULE PO SCH (07:55)
[2020-12-28] MEDS: docusate sod 100mg capsule PO SCH (08:00)
[2020-12-28] MEDS ORDERED: fluconazole 100mg tablet PO SCH (08:00)
[2020-12-28] MEDS: K and/or MAG REPLACEMENT MC SCH (08:00)
[2020-12-28] MEDS: budesonide 3mg SR capsule PO SCH (08:22)
[2020-12-28] MEDS: morphine 2 MG/ML inj. syringe IV PRN (09:34)
[2020-12-28] MEDS: LORazepam 1 MG tablet PO PRN (09:35)
[2020-12-28 09:41] LABS: BASOPHILS % (AUTO) 0.3 % (0-1); EOSINOPHILS % (AUTO) 0 % (0-6); LYMPHOCYTES # (AUTO) 0.9 X10'3 (1.1-4.8); LYMPHOCYTES % (AUTO) 8.7 % (21-51); MEAN CORPUSCULAR HEMOGLOBIN 25.5 PG (27.0-31.0); MEAN CORPUSCULAR HGB CONC 32.3 g/dL (33.0-36.5); MEAN CORPUSCULAR VOLUME 79.2 FL (78-98); MEAN PLATELET VOLUME 7.1 FL (7.4-10.4); MONOCYTES # (AUTO) 0.6 X10'3 (0-0.9); MONOCYTES % (AUTO) 5.7 % (2-12); NEUTROPHILS # (AUTO) 8.7 X10'3 (1.8-7.7); NEUTROPHILS % (AUTO) 85.3 % (42-75); PLATELET COUNT 459 X10'3 (140-440); RED BLOOD COUNT 3.91 X10'6 (4.20-5.60); RED CELL DISTRIBUTION WIDTH 18.7 % (11.5-14.5); WHITE BLOOD COUNT 10.2 X10'3 (4.5-11.0)
[2020-12-28] MEDS: insulin Lispro (HumaLOG) vial - multi-dose SQ SCH (09:42)
[2020-12-28 09:56] LABS: ALANINE AMINOTRANSFERASE 26 U/L (12-78); ALBUMIN 2.5 G/DL (3.4-5.0); ALBUMIN/GLOBULIN RATIO 0.7 (1.1-1.5); ALKALINE PHOSPHATASE 90 IU/L (46-116); ANION GAP 7 (8-16); ASPARTATE AMINO TRANSFERASE 11 U/L (10-37); BILIRUBIN,TOTAL 0.2 MG/DL (0.1-1.0); BLOOD UREA NITROGEN 14 MG/DL (7-18); BUN/CREATININE RATIO 18.9 (6.6-38.0); CALCIUM 8.5 MG/DL (8.5-10.1); CHLORIDE 106 MMOL/L (99-107); CREATININE 0.74 MG/DL (0.40-0.90); GLUCOSE 253 MG/DL (70-104); POTASSIUM 4.3 MMOL/L (3.5-5.1); SODIUM 140 MMOL/L (135-145); TOTAL CARBON DIOXIDE 27.1 MMOL/L (24-32); TOTAL PROTEIN 6.1 G/DL (6.4-8.2); eGFR 80 ML/MIN
[2020-12-28] MEDS ORDERED: FLUC100T PO (10:19)
[2020-12-28] MEDS ORDERED: CEFD300C3 PO (10:19)
[2020-12-28] MEDS: levoFLOXACIN 500mg tablet PO SCH (11:13)
--- NOTE | 2020-12-28 12:17 | NUR ---
Patient Discharged Patient is stable for discharge per MD orders. All discharge instructions were reviewed with the patient and all questions were answered. New prescriptions were sent electronically to the pharmacy. PIV's were discontinued and both canula were intact. Belongings were collected and were sent with the patient. Patient is being picked up by her son and was wheeled to lobby.
== END 2020-12-28 12:10 | disposition home health service (06) | DRG 377 ==
LOC: ER 16:09 → ED HOLD 21:30 → PCU 3S 12-23 10:45
PROVIDERS: ADMIT Family Medicine; ATTEND Family Medicine
PROC: 30233N1 Transfusion of Nonautologous Red Blood Cells into Peripheral Vein, Percutaneous Approach (ICD-10-PCS; 2020-12-26)
PROC: C713YZZ Planar Nuclear Medicine Imaging of Blood using Other Radionuclide (ICD-10-PCS; 2020-12-26)
PROC: 0DB58ZX Excision of Esophagus, Via Natural or Artificial Opening Endoscopic, Diagnostic (ICD-10-PCS; principal; 2020-12-27)
PROC: 0DB68ZX Excision of Stomach, Via Natural or Artificial Opening Endoscopic, Diagnostic (ICD-10-PCS; 2020-12-27)
DX: K29.71 Gastritis, unspecified, with bleeding (principal); J18.9 Pneumonia, unspecified organism; I50.33 Acute on chronic diastolic (congestive) heart failure; J44.0 Chronic obstructive pulmonary disease with (acute) lower respiratory infection; B37.81 Candidal esophagitis; D62 Acute posthemorrhagic anemia; J44.1 Chronic obstructive pulmonary disease with (acute) exacerbation; J96.10 Chronic respiratory failure, unspecified whether with hypoxia or hypercapnia; I11.0 Hypertensive heart disease with heart failure; E03.9 Hypothyroidism, unspecified; E11.9 Type 2 diabetes mellitus without complications; E83.42 Hypomagnesemia; F12.90 Cannabis use, unspecified, uncomplicated; F17.210 Nicotine dependence, cigarettes, uncomplicated; G89.4 Chronic pain syndrome; Z20.822 Contact with and (suspected) exposure to COVID-19; I95.9 Hypotension, unspecified; R51.9 Headache, unspecified; I25.10 Atherosclerotic heart disease of native coronary artery without angina pectoris; I48.91 Unspecified atrial fibrillation; K22.89 Other specified disease of esophagus; K29.70 Gastritis, unspecified, without bleeding; K44.9 Diaphragmatic hernia without obstruction or gangrene; Z86.16 Personal history of COVID-19; Z86.711 Personal history of pulmonary embolism; Z98.61 Coronary angioplasty status; I25.2 Old myocardial infarction; Z88.5 Allergy status to narcotic agent; Z88.8 Allergy status to other drugs, medicaments and biological substances; Z90.49 Acquired absence of other specified parts of digestive tract; Z56.0 Unemployment, unspecified; Z99.81 Dependence on supplemental oxygen; Z79.899 Other long term (current) drug therapy; Z71.6 Tobacco abuse counseling
CPT/HCPCS: 36415; 36430; 43239; 71045; 76937; 78278; 80053; 81003; 82948; 83036; 83605; 83735; 83880; 84100; 84145; 84439; 84443; 84480; 84484; 85007; 85008; 85025; 85379; 85610; 85730; 86885; 86900; 86901; 86920; 87040; 87635; 88305; 88313; 88342; 93005; 94640; 94760; 96365; 96366; 96368; 96375; 99152; 99285; A4620; A9560; G0378; J0131; J0456; J0692; J0696; J1170; J1815; J2250; J2270; J2405; J2920; J2930; J3010; J3475; J7030; J7040; J7512; J7614; P9016

== ENCOUNTER 2021-02-22 11:02 | Day surgery (SDC) | payer MEDICARE, MEDICAID ==
[2021-02-21 12:38] LABS: BASOPHILS % (AUTO) 0.4 % (0-1); EOSINOPHILS # (AUTO) 0.3 X10'3 (0-0.9); EOSINOPHILS % (AUTO) 2.5 % (0-6); HEMOGLOBIN 8.2 g/dl (12.0-16.0); LYMPHOCYTES # (AUTO) 2.8 X10'3 (1.1-4.8); LYMPHOCYTES % (AUTO) 27.3 % (21-51); MEAN CORPUSCULAR HEMOGLOBIN 23.7 PG (27.0-31.0); MEAN CORPUSCULAR HGB CONC 30.5 g/dL (33.0-36.5); MEAN CORPUSCULAR VOLUME 77.5 FL (78-98); MEAN PLATELET VOLUME 7.4 FL (7.4-10.4); MONOCYTES # (AUTO) 0.7 X10'3 (0-0.9); MONOCYTES % (AUTO) 6.7 % (2-12); NEUTROPHILS # (AUTO) 6.6 X10'3 (1.8-7.7); NEUTROPHILS % (AUTO) 63.1 % (42-75); PLATELET COUNT 475 X10'3 (140-440); RED BLOOD COUNT 3.48 X10'6 (4.20-5.60); RED CELL DISTRIBUTION WIDTH 22.7 % (11.5-14.5); WHITE BLOOD COUNT 10.4 X10'3 (4.5-11.0)
[2021-02-21 12:50] LABS: ALBUMIN 3.4 G/DL (3.4-5.0); ANION GAP 14 (8-16); BLOOD UREA NITROGEN 10 MG/DL (7-18); BUN/CREATININE RATIO 12.7 (6.6-38.0); CHLORIDE 101 MMOL/L (99-107); CREATININE 0.79 MG/DL (0.40-0.90); GLUCOSE 173 MG/DL (70-104); POTASSIUM 3.7 MMOL/L (3.5-5.1); SODIUM 141 MMOL/L (135-145); TOTAL CARBON DIOXIDE 26.3 MMOL/L (24-32); eGFR 74 ML/MIN
[2021-02-21 12:54] LABS: APTT 27 SECONDS (22-32)
[2021-02-21 13:19] LABS: ANISOCYTOSIS 3+; HYPOCHROMASIA 2+; MICROCYTOSIS 1+; PLATELET ESTIMATE INCREASED; SCHISTOCYTES FEW
[2021-02-21 13:20] LABS: ELLIPTOCYTES FEW; POLYCHROMASIA 1+; TARGET CELLS FEW
[~2021-02-22] VITALS: Ht 165.1 cm; Wt 53.3 kg
[~2021-02-22 11:02] MED LIST changes: +BUDE3CAP15 PO; -OMEP-50 PO; +ONDA4TAB12 PO; -PANT40SU2 PO; -PRED10TA23 PO; +SPIR25TA5 PO
[2021-02-22] MEDS ORDERED: normal saline 1000ml 1,000 ML IV SCH (11:30)
[2021-02-22] MEDS ORDERED: fentaNYL/PF 50MCG/1 ML 2ML syringe IV ONE (11:30)
[2021-02-22] MEDS ORDERED: MIDAZolam 1mg/ml 10ml vial IV ONE (11:30)
[2021-02-22] MEDS ORDERED: METF-438 PO (11:37)
[2021-02-22] MEDS ORDERED: ZOLP5TAB8 PO (11:37)
[2021-02-22] MEDS ORDERED: SACU1TAB PO (11:37)
[2021-02-22] MEDS ORDERED: NOVLG SQ (11:37)
[2021-02-22] MEDS ORDERED: AMIO200T61 PO (11:37)
[2021-02-22] MEDS ORDERED: FLUT1DIS20 INH (11:37)
[2021-02-22] MEDS ORDERED: EMPA10TA PO (11:37)
== END 2021-02-22 12:15 | disposition home or self-care (01) ==
LOC: SSTAY O 11:02
PROVIDERS: ATTEND Internal Medicine Interventional Cardiology
DX: I48.91 Unspecified atrial fibrillation (principal); Z53.8 Procedure and treatment not carried out for other reasons; J44.9 Chronic obstructive pulmonary disease, unspecified; E11.9 Type 2 diabetes mellitus without complications; I11.0 Hypertensive heart disease with heart failure; I50.42 Chronic combined systolic (congestive) and diastolic (congestive) heart failure; I42.9 Cardiomyopathy, unspecified; I65.29 Occlusion and stenosis of unspecified carotid artery; E03.9 Hypothyroidism, unspecified; I35.1 Nonrheumatic aortic (valve) insufficiency; F32.9 Major depressive disorder, single episode, unspecified; F41.9 Anxiety disorder, unspecified; G89.29 Other chronic pain; Z95.810 Presence of automatic (implantable) cardiac defibrillator; Z79.01 Long term (current) use of anticoagulants; Z79.899 Other long term (current) drug therapy; Z88.8 Allergy status to other drugs, medicaments and biological substances
CPT/HCPCS: 80048; 85008; 85025; 85610; 85730; 93005

== ENCOUNTER 2021-06-21 18:10 | Outpatient (CLI) | payer MEDICAID ==
[~2021-06-21 18:10] MED LIST changes: +AMIO200T61 PO; -ATOR40TA7 PO; -DILT180C89 PO; +EMPA10TA PO; +FLUT1DIS20 INH; -INSU100V13 SQ; -LINA5TAB4 PO; -LISI20TA28 PO; +METF-438 PO; -METO-384 PO; -NITR0.4T51 SL; +NOVLG SQ; -ONDA4TAB12 PO; +SACU1TAB PO
[2021-06-21 18:45] LABS: BASOPHILS # (AUTO) 0.1 X10'3 (0-0.2); BASOPHILS % (AUTO) 0.6 % (0-1); EOSINOPHILS # (AUTO) 0.2 X10'3 (0-0.9); EOSINOPHILS % (AUTO) 2.6 % (0-6); HEMATOCRIT 32.3 % (35.0-45.0); HEMOGLOBIN 10.1 g/dl (12.0-16.0); LYMPHOCYTES # (AUTO) 2.7 X10'3 (1.1-4.8); LYMPHOCYTES % (AUTO) 32.3 % (21-51); MEAN CORPUSCULAR HEMOGLOBIN 25.7 PG (27.0-31.0); MEAN CORPUSCULAR HGB CONC 31.4 g/dL (33.0-36.5); MEAN PLATELET VOLUME 6.6 FL (7.4-10.4); MONOCYTES # (AUTO) 0.7 X10'3 (0-0.9); NEUTROPHILS # (AUTO) 4.8 X10'3 (1.8-7.7); NEUTROPHILS % (AUTO) 56.5 % (42-75); PLATELET COUNT 406 X10'3 (140-440); RED BLOOD COUNT 3.94 X10'6 (4.20-5.60); RED CELL DISTRIBUTION WIDTH 18.2 % (11.5-14.5); WHITE BLOOD COUNT 8.5 X10'3 (4.5-11.0)
[2021-06-21 18:56] LABS: ALANINE AMINOTRANSFERASE 15 U/L (12-78); ALBUMIN 2.5 G/DL (3.4-5.0); ALBUMIN/GLOBULIN RATIO 0.6 (1.1-1.5); ALKALINE PHOSPHATASE 98 IU/L (46-116); ANION GAP 12 (8-16); ASPARTATE AMINO TRANSFERASE 15 U/L (10-37); BILIRUBIN,TOTAL 0.1 MG/DL (0.1-1.0); BLOOD UREA NITROGEN 18 MG/DL (7-18); BUN/CREATININE RATIO 30.5 (6.6-38.0); CALCIUM 8.1 MG/DL (8.5-10.1); CHLORIDE 104 MMOL/L (99-107); CREATININE 0.59 MG/DL (0.40-0.90); GLUCOSE 98 MG/DL (70-104); POTASSIUM 4.2 MMOL/L (3.5-5.1); PREALBUMIN 20.6 MG/DL (19-36); SODIUM 139 MMOL/L (135-145); TOTAL CARBON DIOXIDE 23.5 MMOL/L (24-32); TOTAL PROTEIN 6.5 G/DL (6.4-8.2); VANCOMYCIN,RANDOM 7.8 UG/ML; eGFR > 90 ML/MIN
== END 2021-06-21 23:59 | disposition home or self-care (01) ==
LOC: LAB SPEC 18:10
PROVIDERS: ATTEND Internal Medicine
DX: L03.115 Cellulitis of right lower limb (principal)
CPT/HCPCS: 36415; 80053; 80202; 84134; 85025

== ENCOUNTER 2023-03-15 12:53 | Inpatient (IN) | payer MEDICARE, MEDICAID ==
[~2023-03-15] VITALS: Ht 165.1 cm; Wt 40.0 kg
[~2023-03-15 12:53] MED LIST changes: +AMI200T PO; -AMIO200T61 PO
[2023-03-15] MEDS ORDERED: ondansetron/PF 4mg/2ml inj IV ONE (13:30)
[2023-03-15] MEDS ORDERED: HYDROmorphone inj. 0.5 MG/0.5 ML DISP.SYRIN IV ONE (13:30)
[2023-03-15] MEDS ORDERED: magnesium hydroxide 30ml (MOM) UD suspension PO PRN (14:25)
[2023-03-15] MEDS ORDERED: acetaminophen 325mg tablet PO PRN ×2 (14:25)
[2023-03-15] MEDS ORDERED: dextrose 50%-water 50ml dispensing syringe IV PRN ×2 (14:25)
[2023-03-15] MEDS ORDERED: morphine 2 MG/ML inj. syringe IV PRN (14:25)
[2023-03-15] MEDS ORDERED: MESSAGE TO PHARMACY PO ONE (14:25)
[2023-03-15] MEDS ORDERED: mag hydrox/Alum hydrox/simeth 30ml oral suspension PO PRN (14:25)
[2023-03-15] MEDS ORDERED: glucagon, human recombinant 1mg kit SUBCUT PRN (14:25)
[2023-03-15] MEDS ORDERED: DEXTROSE 15 GM of carb/4 tabs (each vial/BOTTLE has 4 tablets) PO PRN ×2 (14:25)
[2023-03-15] MEDS ORDERED: HYDROcodone/acetaminophen 5mg/325mg tablet PO PRN (14:25)
[2023-03-15] MEDS ORDERED: HYDROmorphone 1 mg/ml syringe IV ONE (15:05)
[2023-03-15 15:30] LABS: BASOPHILS % (AUTO) 0.2 % (0-1); EOSINOPHILS % (AUTO) 0 % (0-6); HEMATOCRIT 35.5 % (35.0-45.0); HEMOGLOBIN 11.3 g/dl (12.0-16.0); LYMPHOCYTES # (AUTO) 0.8 X10'3 (1.1-4.8); LYMPHOCYTES % (AUTO) 4.4 % (21-51); MEAN CORPUSCULAR HEMOGLOBIN 27.6 PG (27.0-31.0); MEAN CORPUSCULAR HGB CONC 31.7 g/dL (33.0-36.5); MEAN CORPUSCULAR VOLUME 86.9 FL (78-98); MEAN PLATELET VOLUME 8.1 FL (7.4-10.4); MONOCYTES # (AUTO) 0.8 X10'3 (0-0.9); MONOCYTES % (AUTO) 4.2 % (2-12); NEUTROPHILS # (AUTO) 16.5 X10'3 (1.8-7.7); NEUTROPHILS % (AUTO) 91.2 % (42-75); PLATELET COUNT 236 X10'3 (140-440); RED BLOOD COUNT 4.09 X10'6 (4.20-5.60); RED CELL DISTRIBUTION WIDTH 19.7 % (11.5-14.5); WHITE BLOOD COUNT 18.1 X10'3 (4.5-11.0)
[2023-03-15 15:41] LABS: APTT 36 SECONDS (22-32); INR 1.1 INR; PROTHROMBIN TIME 11.4 SECONDS (9.0-12.0)
[2023-03-15 15:51] LABS: BILIRUBIN,URINE NEGATIVE (Neg); CLARITY,URINE CLEAR (Clear); COLOR,URINE YELLOW (Yellow); GLUCOSE, URINE >=1000 mg/dl (Neg); KETONES,URINE NEGATIVE (Neg); LEUKOCYTE ESTERASE ,URINE NEGATIVE (Neg); NITRITES, URINE NEGATIVE (Neg); OCCULT BLOOD,URINE NEGATIVE (Neg); PROTEIN,URINE NEGATIVE (Neg); UROBILINOGEN,URINE 0.2 E.U/dL (0.2-1.0)
[2023-03-15 15:53] LABS: UA COLLECTION TYPE FOLEY CATH
[2023-03-15 15:54] LABS: ALANINE AMINOTRANSFERASE 23 U/L (12-78); ALBUMIN 2.6 G/DL (3.4-5.0); ALBUMIN/GLOBULIN RATIO 0.7 (1.1-1.5); ALKALINE PHOSPHATASE 112 IU/L (46-116); ANION GAP 11 (8-16); ASPARTATE AMINO TRANSFERASE 25 U/L (10-37); BILIRUBIN,TOTAL 0.4 MG/DL (0.1-1.0); BLOOD UREA NITROGEN 17 MG/DL (7-18); BUN/CREATININE RATIO 15.7 (10.0-20.0); CHLORIDE 100 MMOL/L (99-107); CREATININE 1.08 MG/DL (0.40-0.90); GLUCOSE 290 MG/DL (70-104); LIPASE 24 U/L (16-77); PRO BRAIN NATRIURETIC PEPTIDE 774 PG/ML (0-125); SODIUM 137 MMOL/L (135-145); TOTAL PROTEIN 6.3 G/DL (6.4-8.2); eCRCL 33 ML/MIN; eGFR 51 ML/MIN
[2023-03-15 16:01] LABS: CALCIUM 5.4 MG/DL (8.5-10.1); POTASSIUM 2.9 MMOL/L (3.5-5.1)
[2023-03-15 16:09] LABS: SQUAMOUS EPITHELIAL CELL,UR MANY /LPF (FEW)
[2023-03-15 16:10] LABS: RBC,URINE 0-2 /HPF (0-2)
[2023-03-15 16:13] LABS: YEAST FEW /HPF (NEGATIVE)
[2023-03-15 16:14] LABS: BACTERIA,URINE FEW /HPF (Neg); CAL OXALATE CRYSTALS FEW /HPF (NEGATIVE)
[2023-03-15 16:19] LABS: TRANSITIONAL EPI CELLS,URINE FEW /HPF
[2023-03-15] MEDS: morphine 2 MG/ML inj. syringe IV PRN ×2 (17:15→21:33)
[2023-03-15] MEDS: HYDROcodone/acetaminophen 10/325mg tab PO PRN (19:20)
[2023-03-15] MEDS ORDERED: magnesium 4gm in 100ml NS 100 ML IV PRN (19:30)
[2023-03-15] MEDS ORDERED: potassium Cl 40MEQ/1/2NS 520ml 520 ML IV PRN (19:30)
[2023-03-15] MEDS ORDERED: magnesium 2GM in 50ml NS 50 ML IV PRN (19:30)
[2023-03-15] MEDS: insulin Lispro (HumaLOG) vial - multi-dose SQ SCH (19:40)
[2023-03-15] MEDS: insulin glargine (Lantus) pen - multi-dose SQ SCH (19:41)
[2023-03-15] MEDS: docusate sod 100mg capsule PO SCH (19:44)
[2023-03-15] MEDS: potassium Cl 20 mEq SR tablet PO PRN (19:49)
[2023-03-15] MEDS ORDERED: K and/or MAG REPLACEMENT MC SCH (20:00)
[2023-03-15] MEDS: ondansetron/PF 4mg/2ml inj IV PRN (21:32)
[2023-03-15] MEDS ORDERED: morphine 2 MG/ML inj. syringe IV ONE (23:10)
[2023-03-16] VITALS (7 sets, daily range): BP systolic 121–135; BP diastolic 56–76; PULSE 80–89; RESP 10–17; TEMP 97–98.2; O2SAT 92–98
[2023-03-16] MEDS: potassium Cl 20 mEq SR tablet PO PRN ×4 (00:03→16:24)
[2023-03-16 00:08] LABS: MAGNESIUM 0.3 MG/DL (1.5-2.4)
[2023-03-16] MEDS: magnesium Cl slow-release 64mg tablet PO PRN (00:17)
[2023-03-16] MEDS ORDERED: calcium carbonate 500mg tablet PO ONE (00:45)
[2023-03-16] MEDS ORDERED: magnesium 4gm in 100ml NS 100 ML IV ONE (00:50)
[2023-03-16 01:04] LABS: PHOSPHORUS 5.1 MG/DL (2.3-4.5)
[2023-03-16] MEDS: morphine 2 MG/ML inj. syringe IV PRN (01:46)
[2023-03-16] MEDS: HYDROcodone/acetaminophen 10/325mg tab PO PRN ×3 (01:47→21:40)
[2023-03-16] MEDS: ondansetron/PF 4mg/2ml inj IV PRN (03:19)
[2023-03-16] MEDS ORDERED: HYDROmorphone 2mg tablet PO PRN (04:35)
[2023-03-16] MEDS: HYDROmorphone 1 mg/ml syringe IV PRN ×6 (04:51→22:50)
[2023-03-16] MEDS ORDERED: potassium Cl 20 mEq SR tablet PO PRN ×2 (07:00)
[2023-03-16] MEDS ORDERED: potassium Cl 40MEQ/1/2NS 520ml 520 ML IV PRN (07:00)
[2023-03-16] MEDS ORDERED: magnesium 4gm in 100ml NS 100 ML IV PRN (07:00)
[2023-03-16] MEDS ORDERED: magnesium 2GM in 50ml NS 50 ML IV PRN (07:00)
[2023-03-16 07:32] LABS: BASOPHILS % (AUTO) 0 % (0-1); EOSINOPHILS # (AUTO) 0.1 X10'3 (0-0.9); EOSINOPHILS % (AUTO) 0.4 % (0-6); HEMATOCRIT 38.1 % (35.0-45.0); HEMOGLOBIN 12.1 g/dl (12.0-16.0); LYMPHOCYTES % (AUTO) 16.6 % (21-51); MEAN CORPUSCULAR HEMOGLOBIN 27.6 PG (27.0-31.0); MEAN CORPUSCULAR HGB CONC 31.9 g/dL (33.0-36.5); MEAN CORPUSCULAR VOLUME 86.6 FL (78-98); MEAN PLATELET VOLUME 8.1 FL (7.4-10.4); MONOCYTES # (AUTO) 1.2 X10'3 (0-0.9); MONOCYTES % (AUTO) 6.6 % (2-12); NEUTROPHILS % (AUTO) 76.4 % (42-75); PLATELET COUNT 229 X10'3 (140-440); RED CELL DISTRIBUTION WIDTH 19.5 % (11.5-14.5); WHITE BLOOD COUNT 18.3 X10'3 (4.5-11.0)
[2023-03-16 07:46] LABS: ALBUMIN 2.8 G/DL (3.4-5.0); ANION GAP 11 (8-16); BLOOD UREA NITROGEN 21 MG/DL (7-18); BUN/CREATININE RATIO 17.1 (10.0-20.0); CHLORIDE 103 MMOL/L (99-107); CREATININE 1.23 MG/DL (0.40-0.90); GLUCOSE 64 MG/DL (70-104); MAGNESIUM 1.9 MG/DL (1.5-2.4); POTASSIUM 3.2 MMOL/L (3.5-5.1); SODIUM 141 MMOL/L (135-145); TOTAL CARBON DIOXIDE 27.1 MMOL/L (24-32); eCRCL 29 ML/MIN; eGFR 44 ML/MIN
[2023-03-16 07:56] LABS: CALCIUM 5.8 MG/DL (8.5-10.1)
[2023-03-16] MEDS: docusate sod 100mg capsule PO SCH ×2 (08:24→19:17)
[2023-03-16] MEDS: K and/or MAG REPLACEMENT MC SCH ×2 (08:24→19:26)
[2023-03-16] MEDS ORDERED: HYDROmorphone inj. 0.5 MG/0.5 ML DISP.SYRIN IV ONE (08:35)
[2023-03-16] MEDS ORDERED: CALCIUM GLUC 1gm/50ml NACL,iso 50 ML IV ONE (08:45)
[2023-03-16] MEDS ORDERED: albuterol 2.5 MG/3 ML nebule NEB PRN ×2 (13:20→17:55)
[2023-03-16] MEDS: furosemide 20 MG/2 ML vial IV SCH (16:24)
[2023-03-16] MEDS: amiodarone 200mg tablet PO SCH (16:24)
[2023-03-16] MEDS ORDERED: ipratropium/albuterol 3ml nebule NEB PRN (17:55)
[2023-03-16] MEDS ORDERED: METF-900 PO (18:39)
[2023-03-16] MEDS ORDERED: MIRT-87 PO (18:39)
[2023-03-16] MEDS ORDERED: BUDE10.2 (18:39)
[2023-03-16] MEDS ORDERED: FURO20TA4 PO (18:39)
[2023-03-16] MEDS ORDERED: ATOR40TA72 PO (18:39)
[2023-03-16] MEDS ORDERED: BUPR-317 PO (18:39)
[2023-03-16] MEDS ORDERED: PREG100C56 PO (18:39)
[2023-03-16] MEDS ORDERED: OXYC10TA57 PO (18:39)
[2023-03-16] MEDS ORDERED: ALB0.5UD IH (18:39)
[2023-03-16] MEDS ORDERED: ATEN-27 PO (18:39)
[2023-03-16] MEDS ORDERED: ALBU18HF2 (19:06)
[2023-03-16] MEDS ORDERED: ATEN50TA2 PO (19:08)
[2023-03-16] MEDS ORDERED: ATEN25TA8 PO (19:11)
[2023-03-16] MEDS ORDERED: LYR75C PO (19:11)
[2023-03-16] MEDS: sacubitril/valsartan 24mg-26mg tablet PO SCH (19:16)
[2023-03-16] MEDS ORDERED: LACT1CAP26 PO (19:20)
[2023-03-16] MEDS: insulin glargine (Lantus) pen - multi-dose SQ SCH (21:00)
[2023-03-16] MEDS ORDERED: LORazepam 2 mg/ml vial IV PRN (23:05)
[2023-03-16] MEDS: LORazepam 0.5 MG tablet PO PRN (23:32)
[2023-03-17] VITALS (26 sets, daily range): BP systolic 101–169; BP diastolic 58–71; PULSE 88–127; RESP 14–22; TEMP 97.2–98.6; O2SAT 92–100
[2023-03-17] MEDS: HYDROmorphone 1 mg/ml syringe IV PRN ×5 (02:32→22:19)
[2023-03-17] MEDS: HYDROcodone/acetaminophen 10/325mg tab PO PRN ×2 (04:04→10:38)
[2023-03-17] MEDS: levoTHYROXINE 25mcg tablet PO SCH (07:00)
[2023-03-17] MEDS ORDERED: BUPIVAcaine 2.5mg/ml inj 50ml vial (contains preservative) ONE (07:19)
[2023-03-17] MEDS ORDERED: desflurane 240ml liquid inh. IH ONE (07:55)
[2023-03-17] MEDS ORDERED: fentaNYL/PF 50MCG/1 ML 2ML syringe ONE (08:00)
[2023-03-17] MEDS ORDERED: midazolam 1 mg/ML 2ml injection ONE (08:00)
[2023-03-17] MEDS: K and/or MAG REPLACEMENT MC SCH ×2 (08:00→19:17)
[2023-03-17] MEDS: docusate sod 100mg capsule PO SCH ×2 (08:00→20:00)
[2023-03-17] MEDS: sacubitril/valsartan 24mg-26mg tablet PO SCH ×2 (08:00→20:47)
[2023-03-17] MEDS ORDERED: propofol inj 20 ML IV ONE (08:01)
[2023-03-17] MEDS ORDERED: LIDOcaine 2% (20mg/ml) 5ml vial ONE (08:01)
[2023-03-17] MEDS ORDERED: dexamethasone sod phosphate 4mg/ml inj. ONE (08:01)
[2023-03-17] MEDS ORDERED: ondansetron/PF 4mg/2ml inj ONE (08:01)
[2023-03-17] MEDS ORDERED: labetalol 20mg/4ml (5mg/ml) syringe IV PRN (08:40)
[2023-03-17] MEDS ORDERED: acetaminophen 1,000mg/100ml IV 100 ML IV ONE (08:40)
[2023-03-17] MEDS ORDERED: ondansetron/PF 4mg/2ml inj IV PRN (08:40)
[2023-03-17] MEDS ORDERED: fentaNYL/PF 50MCG/1 ML 2ML syringe IV PRN ×2 (08:40)
[2023-03-17] MEDS ORDERED: ringers solution, lacted 1,000 ML IV SCH (08:40)
[2023-03-17] MEDS ORDERED: hydrALAZINE 20mg/ml inj. IV PRN (08:40)
[2023-03-17] MEDS ORDERED: morphine 2 MG/ML inj. syringe IV PRN (08:40)
[2023-03-17] MEDS ORDERED: BUPIVAcaine 2.5mg/ml inj 50ml vial (contains preservative) SQ ONE ×2 (08:53→09:11)
[2023-03-17] MEDS: morphine 4 MG/ML inj SYRINge IV PRN ×2 (09:44→10:27)
[2023-03-17] MEDS: furosemide 20 MG/2 ML vial IV SCH (12:54)
[2023-03-17 12:59] LABS: BASOPHILS % (AUTO) 0 % (0-1); EOSINOPHILS % (AUTO) 0.1 % (0-6); HEMATOCRIT 35.5 % (35.0-45.0); HEMOGLOBIN 11.2 g/dl (12.0-16.0); LYMPHOCYTES # (AUTO) 0.3 X10'3 (1.1-4.8); LYMPHOCYTES % (AUTO) 1.7 % (21-51); MEAN CORPUSCULAR HGB CONC 31.7 g/dL (33.0-36.5); MEAN CORPUSCULAR VOLUME 88.2 FL (78-98); MEAN PLATELET VOLUME 8.6 FL (7.4-10.4); MONOCYTES # (AUTO) 0.2 X10'3 (0-0.9); MONOCYTES % (AUTO) 1.2 % (2-12); NEUTROPHILS # (AUTO) 16.2 X10'3 (1.8-7.7); PLATELET COUNT 180 X10'3 (140-440); RED BLOOD COUNT 4.02 X10'6 (4.20-5.60); RED CELL DISTRIBUTION WIDTH 19.5 % (11.5-14.5); WHITE BLOOD COUNT 16.7 X10'3 (4.5-11.0)
[2023-03-17] MEDS: EMPAGLIFLOZIN 10 MG TABLET PO SCH (13:02)
[2023-03-17] MEDS: amiodarone 200mg tablet PO SCH (13:02)
[2023-03-17] MEDS: spironolactone 25 MG tablet PO SCH (13:03)
[2023-03-17 13:09] LABS: PRE OP PARTIAL THROMB. TIME 31 SECONDS (22-32); PROTHROMBIN TIME 10.5 SECONDS (9.0-12.0)
[2023-03-17 13:11] LABS: ALANINE AMINOTRANSFERASE 31 U/L (12-78); ALBUMIN 2.5 G/DL (3.4-5.0); ALBUMIN/GLOBULIN RATIO 0.6 (1.1-1.5); ALKALINE PHOSPHATASE 132 IU/L (46-116); ANION GAP 14 (8-16); ASPARTATE AMINO TRANSFERASE 19 U/L (10-37); BILIRUBIN,TOTAL 0.5 MG/DL (0.1-1.0); BLOOD UREA NITROGEN 25 MG/DL (7-18); BUN/CREATININE RATIO 23.1 (10.0-20.0); CALCIUM 6.9 MG/DL (8.5-10.1); CHLORIDE 101 MMOL/L (99-107); CREATININE 1.08 MG/DL (0.40-0.90); GLUCOSE 222 MG/DL (70-104); POTASSIUM 4.7 MMOL/L (3.5-5.1); SODIUM 137 MMOL/L (135-145); TOTAL CARBON DIOXIDE 21.9 MMOL/L (24-32); TOTAL PROTEIN 6.5 G/DL (6.4-8.2); eCRCL 33 ML/MIN; eGFR 51 ML/MIN
[2023-03-17 13:19] LABS: CHOL/HDL RATIO 1.7 (0.00-4.99); CHOLESTEROL 113 MG/DL (0-200); FREE T4 (FREE THYROXINE) 1.89 NG/DL (0.73-1.40); HDL CHOLESTEROL 68 MG/DL (35-60); LDL CHOLESTEROL 19 MG/DL (50-100); MAGNESIUM 1.4 MG/DL (1.5-2.4); THYROID STIMULATING HORMONE 0.51 ulU/ml (0.34-4.50); TRIGLYCERIDES 132 MG/DL (20-135)
[2023-03-17] MEDS ORDERED: non-formulary drug (Albuterol Sulfate (Ventolin Hfa) 2 PUFFS) PRN (13:55)
[2023-03-17] MEDS ORDERED: LORazepam 0.5 MG tablet PO PRN (13:55)
[2023-03-17] MEDS ORDERED: non-formulary drug (Albuterol Sulfate Nebs* (Proventil Nebs*) 2.5 MG) IH PRN (13:55)
[2023-03-17] MEDS: insulin Lispro (HumaLOG) vial - multi-dose SQ SCH ×3 (14:32→22:05)
[2023-03-17] MEDS: magnesium Cl slow-release 64mg tablet PO PRN ×2 (16:06→16:13)
[2023-03-17] MEDS: ceFAZolin/D5W- 1GM premix 50 ML IV SCH (16:13)
[2023-03-17] MEDS: LORazepam 0.5 MG tablet PO PRN (16:14)
[2023-03-17] MEDS ORDERED: sacubitril/valsartan 24mg-26mg tablet PO SCH (20:00)
[2023-03-17] MEDS: budesonide 0.5mg/2ml UD nebule IH SCH (20:03)
[2023-03-17] MEDS: albuterol 2.5 MG/3 ML nebule NEB SCH (20:03)
[2023-03-17] MEDS: ascorbic acid 500mg tablet PO SCH (20:41)
[2023-03-17] MEDS: mirtazapine 15mg tablet PO SCH (20:41)
[2023-03-17] MEDS: oxyCODONE SR 10mg (sust. release) tab PO SCH (20:41)
[2023-03-17] MEDS: insulin glargine (Lantus) pen - multi-dose SQ SCH (22:04)
[2023-03-18] VITALS (16 sets, daily range): BP systolic 90–121; BP diastolic 47–66; PULSE 61–115; RESP 15–20; TEMP 97.6–99.4; O2SAT 83–100
[2023-03-18] MEDS: ceFAZolin/D5W- 1GM premix 50 ML IV SCH ×3 (00:42→16:32)
[2023-03-18] MEDS: HYDROmorphone 1 mg/ml syringe IV PRN ×4 (01:24→14:22)
[2023-03-18] MEDS: albuterol 2.5 MG/3 ML nebule NEB SCH ×4 (02:37→20:26)
[2023-03-18] MEDS: magnesium Cl slow-release 64mg tablet PO PRN ×2 (03:25→19:13)
[2023-03-18] MEDS: LORazepam 0.5 MG tablet PO PRN ×2 (03:26→16:27)
[2023-03-18 06:44] LABS: ALANINE AMINOTRANSFERASE 22 U/L (12-78); ALBUMIN 2.1 G/DL (3.4-5.0); ALBUMIN/GLOBULIN RATIO 0.6 (1.1-1.5); ALKALINE PHOSPHATASE 107 IU/L (46-116); ANION GAP 10 (8-16); ASPARTATE AMINO TRANSFERASE 19 U/L (10-37); BILIRUBIN,TOTAL 0.6 MG/DL (0.1-1.0); BLOOD UREA NITROGEN 20 MG/DL (7-18); BUN/CREATININE RATIO 20.4 (10.0-20.0); CHLORIDE 101 MMOL/L (99-107); CREATININE 0.98 MG/DL (0.40-0.90); GLUCOSE 153 MG/DL (70-104); MAGNESIUM 1.3 MG/DL (1.5-2.4); PHOSPHORUS 3.3 MG/DL (2.3-4.5); POTASSIUM 3.7 MMOL/L (3.5-5.1); SODIUM 138 MMOL/L (135-145); TOTAL CARBON DIOXIDE 26.7 MMOL/L (24-32); TOTAL PROTEIN 5.8 G/DL (6.4-8.2); eCRCL 37 ML/MIN; eGFR 57 ML/MIN
[2023-03-18 06:56] LABS: BASOPHILS % (AUTO) 0.1 % (0-1); EOSINOPHILS % (AUTO) 0.1 % (0-6); HEMATOCRIT 29.8 % (35.0-45.0); HEMOGLOBIN 9.6 g/dl (12.0-16.0); LYMPHOCYTES # (AUTO) 1.2 X10'3 (1.1-4.8); LYMPHOCYTES % (AUTO) 8.1 % (21-51); MEAN CORPUSCULAR HEMOGLOBIN 28.3 PG (27.0-31.0); MEAN CORPUSCULAR HGB CONC 32.4 g/dL (33.0-36.5); MEAN CORPUSCULAR VOLUME 87.3 FL (78-98); MEAN PLATELET VOLUME 8.6 FL (7.4-10.4); MONOCYTES # (AUTO) 0.7 X10'3 (0-0.9); MONOCYTES % (AUTO) 4.3 % (2-12); NEUTROPHILS # (AUTO) 13.4 X10'3 (1.8-7.7); NEUTROPHILS % (AUTO) 87.4 % (42-75); PLATELET COUNT 165 X10'3 (140-440); RED BLOOD COUNT 3.41 X10'6 (4.20-5.60); RED CELL DISTRIBUTION WIDTH 19.6 % (11.5-14.5); WHITE BLOOD COUNT 15.3 X10'3 (4.5-11.0)
[2023-03-18] MEDS: buPROPion SR 150mg tablet PO SCH (07:48)
[2023-03-18] MEDS: montelukast 10mg tablet PO SCH (07:48)
[2023-03-18] MEDS: amiodarone 200mg tablet PO SCH (07:49)
[2023-03-18] MEDS: duloxetine 30mg CAPSULE.DR PO SCH (07:49)
[2023-03-18] MEDS: ascorbic acid 500mg tablet PO SCH ×2 (07:50→21:04)
[2023-03-18] MEDS: EMPAGLIFLOZIN 10 MG TABLET PO SCH (07:50)
[2023-03-18] MEDS: pregabalin 75mg capsule PO SCH (07:50)
[2023-03-18] MEDS: docusate sod 100mg capsule PO SCH ×2 (07:50→19:09)
[2023-03-18] MEDS: furosemide 20MG tablet PO SCH (07:51)
[2023-03-18] MEDS: oxyCODONE SR 10mg (sust. release) tab PO SCH ×2 (07:51→21:03)
[2023-03-18] MEDS: atorvastatin 20mg tablet PO SCH (07:51)
[2023-03-18] MEDS: pantoprazole 40mg Tablet.DR PO SCH (07:51)
[2023-03-18] MEDS: atenolol 25mg tablet PO SCH (07:54)
[2023-03-18 07:59] LABS: ANISOCYTOSIS 2+; LARGE PLATELETS FEW; PLATELET ESTIMATE NORMAL; POIKILOCYTOSIS FEW; POLYCHROMASIA FEW
[2023-03-18] MEDS ORDERED: non-formulary drug (Levothyroxine Sodium 1 TAB) PO SCH (08:00)
[2023-03-18] MEDS ORDERED: EMPAGLIFLOZIN 10 MG TABLET PO SCH (08:00)
[2023-03-18] MEDS: K and/or MAG REPLACEMENT MC SCH ×2 (08:00→20:00)
[2023-03-18] MEDS ORDERED: amiodarone 200mg tablet PO SCH (08:00)
[2023-03-18] MEDS: spironolactone 25 MG tablet PO SCH (08:06)
[2023-03-18] MEDS: levoTHYROXINE 25mcg tablet PO SCH (08:10)
[2023-03-18] MEDS: ondansetron/PF 4mg/2ml inj IV PRN (08:22)
[2023-03-18] MEDS: budesonide 0.5mg/2ml UD nebule IH SCH ×2 (08:39→20:26)
[2023-03-18] MEDS: ipratropium 0.5 MG/2.5ML nebule IH SCH ×3 (08:39→20:26)
[2023-03-18] MEDS: sacubitril/valsartan 24mg-26mg tablet PO SCH ×2 (11:08→19:16)
[2023-03-18] MEDS: HYDROcodone/acetaminophen 10/325mg tab PO PRN ×2 (12:40→19:13)
[2023-03-18] MEDS ORDERED: ondansetron 4mg rapidly disintigrating tab PO PRN (16:14)
[2023-03-18] MEDS: insulin Lispro (HumaLOG) vial - multi-dose SQ SCH (19:08)
[2023-03-18] MEDS: insulin glargine (Lantus) pen - multi-dose SQ SCH (21:03)
[2023-03-18] MEDS: mirtazapine 15mg tablet PO SCH (21:04)
[2023-03-19] VITALS (9 sets, daily range): BP systolic 95; BP diastolic 52; PULSE 91–115; RESP 16–19; TEMP 98.6; O2SAT 94–98
[2023-03-19] MEDS: albuterol 2.5 MG/3 ML nebule NEB SCH ×3 (02:58→14:53)
[2023-03-19] MEDS: ipratropium 0.5 MG/2.5ML nebule IH SCH ×3 (02:58→14:54)
[2023-03-19] MEDS: HYDROcodone/acetaminophen 10/325mg tab PO PRN ×2 (04:32→12:30)
[2023-03-19] MEDS: magnesium Cl slow-release 64mg tablet PO PRN (04:32)
[2023-03-19 06:44] LABS: ALANINE AMINOTRANSFERASE 15 U/L (12-78); ALBUMIN/GLOBULIN RATIO 0.6 (1.1-1.5); ALKALINE PHOSPHATASE 102 IU/L (46-116); ANION GAP 9 (8-16); ASPARTATE AMINO TRANSFERASE 15 U/L (10-37); BILIRUBIN,TOTAL 0.4 MG/DL (0.1-1.0); BLOOD UREA NITROGEN 20 MG/DL (7-18); CALCIUM 7.5 MG/DL (8.5-10.1); CHLORIDE 105 MMOL/L (99-107); CREATININE 1.05 MG/DL (0.40-0.90); GLUCOSE 92 MG/DL (70-104); MAGNESIUM 1.6 MG/DL (1.5-2.4); PHOSPHORUS 3.4 MG/DL (2.3-4.5); POTASSIUM 3.5 MMOL/L (3.5-5.1); SODIUM 138 MMOL/L (135-145); TOTAL CARBON DIOXIDE 24.2 MMOL/L (24-32); TOTAL PROTEIN 5.5 G/DL (6.4-8.2); eCRCL 34 ML/MIN; eGFR 53 ML/MIN
[2023-03-19 07:06] LABS: BASOPHILS % (AUTO) 0.2 % (0-1); EOSINOPHILS # (AUTO) 0.1 X10'3 (0-0.9); HEMOGLOBIN 8.5 g/dl (12.0-16.0); LYMPHOCYTES # (AUTO) 1.3 X10'3 (1.1-4.8); LYMPHOCYTES % (AUTO) 10.4 % (21-51); MEAN CORPUSCULAR HEMOGLOBIN 28.1 PG (27.0-31.0); MEAN CORPUSCULAR HGB CONC 31.3 g/dL (33.0-36.5); MEAN CORPUSCULAR VOLUME 89.6 FL (78-98); MEAN PLATELET VOLUME 8.8 FL (7.4-10.4); MONOCYTES # (AUTO) 0.8 X10'3 (0-0.9); MONOCYTES % (AUTO) 6.8 % (2-12); NEUTROPHILS # (AUTO) 10.1 X10'3 (1.8-7.7); NEUTROPHILS % (AUTO) 81.6 % (42-75); PLATELET COUNT 146 X10'3 (140-440); RED BLOOD COUNT 3.02 X10'6 (4.20-5.60); RED CELL DISTRIBUTION WIDTH 19.5 % (11.5-14.5); WHITE BLOOD COUNT 12.4 X10'3 (4.5-11.0)
[2023-03-19] MEDS: sacubitril/valsartan 24mg-26mg tablet PO SCH (07:35)
[2023-03-19] MEDS: pregabalin 75mg capsule PO SCH (07:35)
[2023-03-19] MEDS: amiodarone 200mg tablet PO SCH (07:35)
[2023-03-19] MEDS: oxyCODONE SR 10mg (sust. release) tab PO SCH (07:35)
[2023-03-19] MEDS: levoTHYROXINE 25mcg tablet PO SCH (07:35)
[2023-03-19] MEDS: duloxetine 30mg CAPSULE.DR PO SCH (07:35)
[2023-03-19] MEDS: buPROPion SR 150mg tablet PO SCH (07:35)
[2023-03-19] MEDS: EMPAGLIFLOZIN 10 MG TABLET PO SCH (07:36)
[2023-03-19] MEDS: furosemide 20MG tablet PO SCH (07:36)
[2023-03-19] MEDS: montelukast 10mg tablet PO SCH (07:36)
[2023-03-19] MEDS: atorvastatin 20mg tablet PO SCH (07:36)
[2023-03-19] MEDS: pantoprazole 40mg Tablet.DR PO SCH (07:36)
[2023-03-19] MEDS: ascorbic acid 500mg tablet PO SCH (07:36)
[2023-03-19] MEDS: budesonide 0.5mg/2ml UD nebule IH SCH (07:58)
[2023-03-19] MEDS: K and/or MAG REPLACEMENT MC SCH (08:00)
[2023-03-19] MEDS: docusate sod 100mg capsule PO SCH (08:00)
[2023-03-19] MEDS: atenolol 25mg tablet PO SCH (08:00)
[2023-03-19] MEDS: spironolactone 25 MG tablet PO SCH (08:30)
== END 2023-03-19 15:15 | DRG 481 ==
LOC: ER 12:54 → ED HOLD 14:27 → ORTHO 4S 03-16 02:14
PROVIDERS: ADMIT Internal Medicine; ATTEND Internal Medicine
PROC: 0QS606Z Reposition Right Upper Femur with Intramedullary Internal Fixation Device, Open Approach (ICD-10-PCS; principal; 2023-03-17 07:55)
DX: S72.141A Displaced intertrochanteric fracture of right femur, initial encounter for closed fracture (principal); D62 Acute posthemorrhagic anemia; I50.22 Chronic systolic (congestive) heart failure; J96.11 Chronic respiratory failure with hypoxia; N17.9 Acute kidney failure, unspecified; E44.0 Moderate protein-calorie malnutrition; Z68.1 Body mass index [BMI] 19.9 or less, adult; W18.30XA Fall on same level, unspecified, initial encounter; I25.2 Old myocardial infarction; E83.42 Hypomagnesemia; E83.51 Hypocalcemia; E87.6 Hypokalemia; E83.39 Other disorders of phosphorus metabolism; I25.10 Atherosclerotic heart disease of native coronary artery without angina pectoris; I48.0 Paroxysmal atrial fibrillation; J44.89 Other specified chronic obstructive pulmonary disease; E11.9 Type 2 diabetes mellitus without complications; F17.210 Nicotine dependence, cigarettes, uncomplicated; Z83.3 Family history of diabetes mellitus; Z86.711 Personal history of pulmonary embolism; Z86.73 Personal history of transient ischemic attack (TIA), and cerebral infarction without residual deficits; Z88.8 Allergy status to other drugs, medicaments and biological substances; Z79.01 Long term (current) use of anticoagulants; Z79.84 Long term (current) use of oral hypoglycemic drugs; Z79.899 Other long term (current) drug therapy
CPT/HCPCS: 36415; 71045; 73502; 76000; 80048; 80053; 80061; 81001; 82306; 82948; 83036; 83690; 83735; 83880; 83970; 84100; 84439; 84443; 84484; 85008; 85025; 85610; 85730; 86885; 86900; 86901; 87081; 87088; 93005; 93306; 94640; 94760; 97110; 97161; 97530; 99285; A4314; A4615; A4618; A6213; A6250; A7000; C1713; G0378; J0131; J0610; J0690; J1100; J1170; J1815; J1940; J2060; J2250; J2270; J2405; J2704; J3010; J3475; J3490; J7120